=== PATIENT | male | born 1965 | race American Indian/Alaskan Native ===

== ENCOUNTER 2018-02-01 14:30 | Emergency (ER) | payer OTHER ==
[~2018-02-01] VITALS: Ht 182.9 cm; Wt 45.4 kg
[~2018-02-01 14:30] MED LIST: INSDET100 SC; INSU100I6; VICODIN ES 7.51 EACH PO
[2018-02-01] MEDS ORDERED: ONDA8 PO (15:03)
[2018-02-01 15:04] LABS: BASOPHILS ABSOLUTE AUTO 0.04 K/mm3 (0.00-0.23); BASOPHILS PERCENT AUTO 1 % (0-2); EOSINOPHILS PERCENT AUTO 2 % (0-6); Hematocrit 40.7 % (37.0-53.0); Hemoglobin 13.6 g/dL (13.5-17.5); IMMATURE GRAN ABSOLUTE AUTO 0.01 K/mm3 (0.00-0.10); IMMATURE GRAN PERCENT AUTO 0 % (0-1); LYMPHOCYTES PERCENT AUTO 23 % (21-46); MONOCYTES ABSOLUTE AUTO 0.65 K/mm3 (0.16-1.47); MONOCYTES PERCENT AUTO 12 % (4-13); Mean Corpuscular HGB 30.7 pg (26.0-34.0); Mean Corpuscular HGB Conc 33.4 g/dL (31.5-36.5); Mean Corpuscular Volume 92 fL (80-100); Mean Platelet Volume 9.5 fL (9.1-12.4); NEUTROPHILS PERCENT AUTO 62 % (41-73); Platelet Count 224 K/mm3 (150-400); RDW Coefficient Variation 13.3 % (11.7-14.2); RDW Standard Deviation 44.8 fL (35.1-46.3); Red Blood Cell Count 4.43 M/mm3 (4.30-5.90)
[2018-02-01] MEDS ORDERED: Cholestyrami239.4 GM PO (15:04)
[2018-02-01 15:14] LABS: Alanine Aminotransfer (ALT/SGP 19 U/L (12-78); Albumin/Globulin Ratio 0.8 (0.8-1.8); Alk Phos 55 U/L (50-136); Anion Gap 7 mmol/L (6-16); Aspartate Aminotrans (AST/SGOT 12 U/L (12-37); Bilirubin, Total 0.2 mg/dL (0.1-1.0); Blood Urea Nitrogen 11 mg/dL (8-24); Bun/Creatinine Ratio 16.8 (12.0-20.0); CO2, Blood 26 mmol/L (21-32); Calcium, Blood 8.3 mg/dL (8.5-10.1); Chloride, Blood 109 mmol/L (98-108); Creatinine, Blood 0.65 mg/dL (0.60-1.20); Globulin, Blood 3.7 g/dL (2.2-4.0); Glomerular Filtration Rate >60 (60-); Glucose, Blood 116 mg/dL (70-99); Sodium, Blood 142 mmol/L (136-145); Total Protein, Blood 6.7 g/dL (6.4-8.2)
[2018-02-01] MEDS ORDERED: KETO10 PO (16:30)
[2018-02-01] MEDS ORDERED: METO5A PO (16:30)
== END 2018-02-01 16:44 | disposition home or self-care (01) ==
LOC: ER 14:30
PROVIDERS: Internal Medicine
DX: E11.43 Type 2 diabetes mellitus with diabetic autonomic (poly)neuropathy (principal); K31.84 Gastroparesis; Z79.899 Other long term (current) drug therapy
CPT/HCPCS: 74176; 80053; 82272; 83690; 84484; 85025; 93005; 93010; 96374; 96375; 99284-25; J2405; J2765

== ENCOUNTER 2018-10-26 08:20 | Inpatient (IN) | payer OTHER ==
[~2018-10-26] VITALS: Ht 170.2 cm; Wt 72.6 kg
[~2018-10-26 08:20] MED LIST changes: +Cholestyrami239.4 GM PO; +KETO10 PO; +METO5A PO; +ONDA8 PO
[2018-10-26 08:47] LABS: BASOPHILS ABSOLUTE AUTO 0.05 K/mm3 (0.00-0.23); BASOPHILS PERCENT AUTO 0 % (0-2); EOSINOPHILS ABSOLUTE AUTO 0.02 K/mm3 (0.00-0.68); EOSINOPHILS PERCENT AUTO 0 % (0-6); Hematocrit 44.6 % (37.0-53.0); IMMATURE GRAN ABSOLUTE AUTO 0.03 K/mm3 (0.00-0.10); IMMATURE GRAN PERCENT AUTO 0 % (0-1); LYMPHOCYTES ABSOLUTE AUTO 0.81 K/mm3 (0.84-5.20); LYMPHOCYTES PERCENT AUTO 7 % (21-46); MONOCYTES ABSOLUTE AUTO 0.76 K/mm3 (0.16-1.47); MONOCYTES PERCENT AUTO 7 % (4-13); Mean Corpuscular HGB 31.7 pg (26.0-34.0); Mean Corpuscular HGB Conc 33.6 g/dL (31.5-36.5); Mean Corpuscular Volume 94 fL (80-100); Mean Platelet Volume 10.6 fL (9.1-12.4); NEUTROPHILS ABSOLUTE AUTO 9.83 K/mm3 (1.96-9.15); NEUTROPHILS PERCENT AUTO 86 % (41-73); Platelet Count 216 K/mm3 (150-400); RDW Coefficient Variation 13.4 % (11.7-14.2); RDW Standard Deviation 46.7 fL (35.1-46.3); Red Blood Cell Count 4.73 M/mm3 (4.30-5.90)
[2018-10-26 09:00] LABS: Albumin, Blood 4.1 g/dL (3.4-5.0); Albumin/Globulin Ratio 1.1 (0.8-1.8); Bilirubin, Total 0.5 mg/dL (0.1-1.0); Bun/Creatinine Ratio 11.2 (12.0-20.0); Calcium, Blood 9.7 mg/dL (8.5-10.1); Creatinine, Blood 1.43 mg/dL (0.60-1.20); Globulin, Blood 3.7 g/dL (2.2-4.0); Potassium, Blood 3.8 mmol/L (3.5-5.5); Total Protein, Blood 7.8 g/dL (6.4-8.2)
--- NOTE | 2018-10-26 14:45 | NUR ---
Telephone call with hospitalist: Asked for orders for straight cath with lidocaine per pt's baseline for the past six years. Also requested telemetry due to pt's heart rate increasing. Made provider aware that blood sugar has increased to 231. New orders: straight cath Q 6 hours with lidocaine.
--- NOTE | 2018-10-26 17:15 | NUR ---
Shift summary: Tato is complaining of severe abdominal pain, N/V and diarrhea. He states that he has had chronic diarrhea for the past 6 years which is the cause of his weight loss. His skin is intact. He states that he is not diabetic, that he thought he was but the lab results said otherwise. His chart states that he is a Type I diabetic. He also reports that he straight caths at home using a 12 Coude. Hospital supply has a 14 Coude. Orders obtained from Dr. Cam. Tato is very sensitive to noise, complaining that staff is "yelling" at him. He has a bed alarm on due to self-transferring. He is weak and states he is unable to stand up straight due to the abdominal pain. He wears Attends. He doesn't know why he straight caths. He states that he has a caregiver at home but doesn't know why. He has been tachycardic since admission with the highest BP 109 systolic. He states that the IV dilaudid is doing nothing for his pain. He has slept between doses. He is on continuous BiOx set up by RT.
--- NOTE | 2018-10-26 20:22 | NUR ---
SPOKE WITH DR. CORTES REGARDING ELEVATED HR IN 130'S. RECOMMENDED TELEMETRY. NO ORDER FOR TELEMETRY, HOWEVER NEW ORDER FOR A 500CC BOLUS OF NS. WILL BEGIN AND CTM.
--- NOTE | 2018-10-26 21:55 | NUR ---
PT NPO WITH D5/LR INFUSING. CBG'S ELEVATED >300. COVERED PER SS. HOSPITALIST NOTIFIED FOR RECOMMENDATION OF FLUID CHANGE. D5/LR DC. NEW ORDER FOR LR. HR 130'S AT REST. 150'S WITH MOVEMENT. NEW ORDER FOR EKG.
[2018-10-26 23:11] LABS: Adenovirus F 40/41 Not Detected (NOT DETECT); Astrovirus Not Detected (NOT DETECT); Campylobacter Sp Not Detected (NOT DETECT); Cryptosporidium Not Detected (NOT DETECT); Cyclospora Cayetanensis Not Detected (NOT DETECT); E. Coli O157 Not Detected (NOT DETECT); Entamoeba Histolytica Not Detected (NOT DETECT); Enteroaggregative E. coli-EAEC Not Detected (NOT DETECT); Enteropathogenic E. coli-EPEC Not Detected (NOT DETECT); Enterotoxigenic E. coli-ETEC Not Detected (NOT DETECT); Giardia Lamblia Not Detected (NOT DETECT); Norovirus GI/GII Not Detected (NOT DETECT); Plesiomonas Shigelloides Not Detected (NOT DETECT); Rotavirus A Not Detected (NOT DETECT); Salmonella Sp Not Detected (NOT DETECT); Sapovirus Not Detected (NOT DETECT); Shiga Toxin-prod E. coli-STEC Not Detected (NOT DETECT); Shigella/Enteroin E. coli-EIEC Not Detected (NOT DETECT); Vibrio Cholerae Not Detected (NOT DETECT); Vibrio Sp Not Detected (NOT DETECT); Yersinia Enterocolitica Not Detected (NOT DETECT)
[2018-10-26 23:14] LABS: Source, Urine Voided
[2018-10-26 23:19] LABS: Blood, Urine 5+ (Neg); Glucose Qualitative, Urine 1+ (Neg); Ketones, Urine 1+ (Neg); Leukocyte Esterase, Urine 3+ (Neg); Nitrite, Urine Neg (Neg); Protein, Urine 4+ (Neg); Specific Gravity, Urine 1.025 (1.003-1.022); Urobilinogen, Urine 1+ (Normal)
[2018-10-26 23:22] LABS: Bilirubin, Urine 1+ (Neg)
[2018-10-26 23:25] LABS: Appearance, Urine Cloudy (Clear); Bacteria Many /hpf; Color, Urine Amber (P-Yellow); Red Blood Cells, Urine 0-2 /hpf (0-2); Squamous Epithelial Cells Few /hpf (Few); White Blood Cells, Urine TNTC /hpf (0-5)
[2018-10-26 23:26] LABS: Calcium Oxalate Crystals Few /hpf
--- NOTE | 2018-10-27 05:07 | NUR ---
SHIFT SUMMARY: PT HAS BEEN COMPLAINING OF ABD PAIN AND NAUSEA THROUGHOUT SHIFT. APPEARS TO BE WEAK, FRAIL AND FATIGUED. HR ELEVATED THROUGHOUT SHIFT WITH A LOW BLOOD PRESSURE. 500CC BOLUS GIVEN. LR INFUSING AT 125/HR PER EMAR. GIVEN ZOFRAN AND 0.5MG DILAUDID. PT REQUESTING PAIN MEDICATION THIS MORNING, HOWEVER NOT GIVEN D/T BP LOW AT 90/61. PT CURRENTLY RESTING IN BED. PT ABLE TO STRAIGHT CATH HIMSELF. 75ML OF DARK URINE OUT. PT REPORTS STRAIGHT CATHING ONCE A DAY AT BASELINE. OOB TO BEDSIDE COMMODE INDEPENDENTLY. PT IS HAVING CLEAR-JELLY LIKE STOOLS. STOOL SAMPLE SENT TO LAB.
[2018-10-27 05:24] LABS: BASOPHILS ABSOLUTE AUTO 0.01 K/mm3 (0.00-0.23); BASOPHILS PERCENT AUTO 1 % (0-2); Hematocrit 43.2 % (37.0-53.0); Hemoglobin 14.4 g/dL (13.5-17.5); Mean Corpuscular HGB 31.5 pg (26.0-34.0); Mean Corpuscular HGB Conc 33.3 g/dL (31.5-36.5); Mean Corpuscular Volume 95 fL (80-100); Mean Platelet Volume 10.2 fL (9.1-12.4); Platelet Count 188 K/mm3 (150-400); RDW Coefficient Variation 13.5 % (11.7-14.2); RDW Standard Deviation 46.7 fL (35.1-46.3); Red Blood Cell Count 4.57 M/mm3 (4.30-5.90)
[2018-10-27 05:25] LABS: EOSINOPHILS PERCENT AUTO 0 % (0-6); IMMATURE GRAN ABSOLUTE AUTO 0.01 K/mm3 (0.00-0.10); IMMATURE GRAN PERCENT AUTO 1 % (0-1); LYMPHOCYTES ABSOLUTE AUTO 0.33 K/mm3 (0.84-5.20); LYMPHOCYTES PERCENT AUTO 17 % (21-46); MONOCYTES ABSOLUTE AUTO 0.26 K/mm3 (0.16-1.47); MONOCYTES PERCENT AUTO 13 % (4-13); NEUTROPHILS ABSOLUTE AUTO 1.39 K/mm3 (1.96-9.15); NEUTROPHILS PERCENT AUTO 70 % (41-73)
[2018-10-27 05:42] LABS: Bun/Creatinine Ratio 16.2 (12.0-20.0); Calcium, Blood 7.7 mg/dL (8.5-10.1); Creatinine, Blood 2.04 mg/dL (0.60-1.20); Potassium, Blood 2.8 mmol/L (3.5-5.5)
[2018-10-27 05:46] LABS: BAND PERCENT MAN 45 % (0-8); BASOPHILS PERCENT MAN 0 % (0-2); EOSINOPHILS ABSOLUTE MAN 0.02 K/mm3 (0.00-0.68); EOSINOPHILS PERCENT MAN 1 % (0-6); LYMPHOCYTES PERCENT MAN 20 % (21-46); METAMYELOCYTE ABSOLUTE MAN 0.08 K/mm3 (0.00-0.00); METAMYELOCYTE PERCENT MAN 4 % (0-0); MONOCYTES ABSOLUTE MAN 0.06 K/mm3 (0.16-1.47); MONOCYTES PERCENT MAN 3 % (4-13); NEUTROPHILS ABSOLUTE MAN 1.44 K/mm3 (1.96-9.15); SEG NEUTROPHILS PERCENT MAN 27 % (41-73); TOTAL CELLS COUNTED 100
--- NOTE | 2018-10-27 05:46 | NUR ---
ATTEMPTED TO CALL HOSPITALIST REGARDING LOW BP, TACHYCARDIA, URINE SAMPLE AND LABS WITH CONCERNS OF SEPSIS. NO ANSWER AT THIS TIME.
--- NOTE | 2018-10-27 06:45 | NUR ---
PT TO ICU 7 FROM SURGICAL FLOOR FROM RAPID RESPONSE. PT APPEARS PALE, IN THE POSITION AND IS MOANING IN PAIN. UPON TRANSFER TO ICU BED PT HAS JELLY LIKE BLOOD DISCHARGE FROM RECTUM. PER SURGICAL FLOOR NURSE, PT ATTEMPTED TO USE BEDSIDE COMMODE BECAME WEAK AND PALE AND HAD RECTAL BLEEDING. BLADDER SCAN ORDERED, 127 ML URINE NOTED. PER PT HE STRAIGHT CATHS SELF FOR UNKNOWN REASON. PT MEDICATED FOR PAIN. PT RECEIVING 500 ML NS BOLUS TO BE FOLLOWED BY 1.5L MAINTAINENCE NS FLUID @124 ML/HR. WILL REPORT TO DAYSHIFT NURSE.
--- NOTE | 2018-10-27 06:49 | NUR ---
WHILE GETTING OUT OF BED TO [facility], PT REPORTS "I DON'T FEEL WELL". PT BEGAN TO GET PALE AND BECAME UNRESPONSIVE. SANGUINOUS JELLY LIKE STOOL LEAKING PER RECTUM DURING THIS TIME. RAPID RESPONSE TEAM INITIATED AT APPROX 0550. BP 105/51 WITH HR OF 126. SALINE BOLUS STARTED. OXYGEN APPLIED. BLOOD SUGAR 135 AT 0603. NARCAN ADMINISTERED AT APPROX 0613 PER HOSPITALIST ORDERS. PT TRANSFERRED TO ICU. BP 67/43 WITH HR OF 57 PRIOR TO TRANSFERRING.
[2018-10-27 07:25] LABS: Hematocrit 41.8 % (37.0-53.0); Hemoglobin 13.8 g/dL (13.5-17.5)
--- NOTE | 2018-10-27 08:00 | NUR ---
ASSESSMENT- PT HYPOTENSIVE TO 40'S. MINIMALLY RESPONSIVE. CHECKED WITH MANUAL CUFF. BOLUS INFUSING, SINUS TACH. COLOR PALE, SKIN COOL, MOIST, PULSES PALPABLE. RESPIRATIONS UNLABORED, ON NRB MASK. NOTIFIED DR. GARCIA, LEVOPHED STARTED VIA RAC IV WITH IMPROVEMENT OF BP TO 80'S. PT AWAKE, ABLE TO ANSWER SOME QUESTIONS. STATES HAS HAD CHRONIC DIARRHEA FOR 6 YEARS, HAD SMALL AMOUNT BLOODY DRAINAGE FROM RECTUM-LINEN CHANGE. C/O INCREASING BACK PAIN-RESTLESS. ABDOMEN PAINFUL TO ANY TOUCH, BOWEL SOUNDS PRESENT, ABDOMEN FLAT, SOFT. CHANGED TO NC-SATURATIONS MAINTAINING. RESPIRATIONS INCREASED WITH PAIN. CONSULT CALLED TO DR. ADKINS BY ROBIN HERCULES
--- NOTE | 2018-10-27 08:14 | NUR ---
DR. GARCIA HERE-UPDATED. PT AWAKE, C/O BACK PAIN-CHRONIC AND ABDOMINAL PAIN. WAS MOANING AND RESTLESS IN BED, ASSISTED TO REPOSITION AND QUIET NOW. REMAINS ST 120'S, SBP IMPROVED WITH LEVOPHED AT 6 MCG/MIN TO 90'S. SKIN PALE. MOIST. AFEBRILE. PULSES PALPABLE. DENIES NEED TO VOID. IV INCREASED TO NS AT 150 CC/HR. ROCEPHIN STARTED, K REPLACEMENT INFUSING. PIV X 2 INTACT
--- NOTE | 2018-10-27 08:40 | NUR ---
DR. ADKINS HERE-ASSESSED PT. PLAN FOR CENTRAL LINE.
--- NOTE | 2018-10-27 09:13 | NUR ---
REMAINS SINUS TACH HIGH 120'S. DR. ADKINS AT BEDSIDE, NECK VEINS FLAT. TO RECEIVE 2 LITER NS BOLUS. INCREASED LEVOPHED FOR HYPOTENSION
--- NOTE | 2018-10-27 09:46 | NUR ---
CALL TO DR. LA TO UPDATE HIM ON PT CONDITION. STATES HE WILL SEE PT SHORTLY.
--- NOTE | 2018-10-27 10:46 | NUR ---
PT ALERT, ASKING QUESTIONS. NOT ORIENTED, EXPLAINED PLAN OF CARE, STATES UNDERSTANDING. C/O ABDOMINAL AND BACK PAIN-RESTLESS. REPOSITIONED, LINEN CHANGE FOR COMFORT. RX WITH PAIN MEDICATION. RECIEVING FLUID BOLUS. PLAN NOW FOR PICC LINE. LEVOPHED AT 8 MCG/MIN. VOIDED SMALL AMOUNT-SPILLED IN BED. DENIES NEED TO VOID NOW.
--- NOTE | 2018-10-27 10:48 | NUR ---
Upon receiving a referral requesting spiritual care, I visited patient. Patient is sitting up in bed and alert. I introduce myself and explain what department I am from. Patient quickly states that he is not interested in a visit. I will continue to remain available to patient and family.
--- NOTE | 2018-10-27 11:01 | NUR ---
DR. LA HERE, ASSESSED PT. PLANS FOR SURGERY. PT AGREEABLE.
[2018-10-27 11:44] LABS: Source, Urine Catheter
--- NOTE | 2018-10-27 11:57 | NUR ---
PICC LINE BEING PLACED BY SABINA HERCULES. PREPARING FOR SURGERY. LACTATE 3.3, K 2.8-NOTIFIED DR. LA-SEE ORDERS.
--- NOTE | 2018-10-27 12:08 | NUR ---
DR. LA HERE-PT CONSENTED FOR SURGERY. PICC LINE COMPLETED. LEVOPHED AND IVF TO LINE. DR. CHOWDHURY HERE-REPORT GIVEN. PT CONTINUES SINUS TACH, MAP > 60. READIED FOR SURGERY
[2018-10-27 12:16] LABS: Bilirubin, Urine Neg (Neg); Blood, Urine 5+ (Neg); Glucose Qualitative, Urine Neg (Neg); Ketones, Urine 1+ (Neg); Leukocyte Esterase, Urine 2+ (Neg); Nitrite, Urine Neg (Neg); Protein, Urine 2+ (Neg); Urobilinogen, Urine NORM (Normal)
[2018-10-27 12:30] LABS: Hemoglobin 12.9 g/dL (13.5-17.5)
[2018-10-27 12:41] LABS: Appearance, Urine Hazy (Clear); Bacteria Mod /hpf; Color, Urine Yellow (P-Yellow); Mucus Light (0-Heavy); Squamous Epithelial Cells Not Seen /hpf (Few)
[2018-10-27 12:42] LABS: Amorphous Mod (0-Heavy)
--- NOTE | 2018-10-27 12:49 | NUR ---
10/27/18 [id number] Genia Quiroz PT ENTERED OR WITH GARCIA CATHETER AND IS ON SCHEDULED ANTIBIOTICS
--- NOTE | 2018-10-27 14:50 | NUR ---
CLARIFICATION- POTASSIUM SUPPLEMENT TO BE [address] ADKINS.
--- NOTE | 2018-10-27 16:25 | NUR ---
RETURN FROM O.R. PT TO ICU FROM O.R. IN BED. AWAKE, ALERT, ABLE TO ANSWER QUESTIONS. C/O ABDOMINAL TENDERNESS AND PAIN FROM NGT. EXPLAINED PLAN OF CARE. ABLE TO REST WHEN UNDISTURBED. CALLED UNIT-UPDATED AND SPOKE WITH PT. SINUS TACH, SBP 70'80'S-LEVOPHED INCREASED FROM 8 TO 10 MCG/MIN, VASOPRESSIN GTT STARTED. LR AT 150 CC/HR, POTASSIUM REPLACEMENT STARTED. LEFT PICC INTACT, 2 PIV INTACT. ABDOMEN SOFT WITH ML DRSG WITH VACUUM INTACT, NO DRAINAGE. NGT TO LIS, VERIFED WITH AIR BOLUS, NO DRAINAGE. UO VIA GARCIA. ASSISTED TO REPOSITION FOR COMFORT. SCDS ON.
[2018-10-27 17:11] LABS: Bun/Creatinine Ratio 19.4 (12.0-20.0); Calcium, Blood 6.6 mg/dL (8.5-10.1); Creatinine, Blood 1.44 mg/dL (0.60-1.20); Potassium, Blood 2.9 mmol/L (3.5-5.5)
--- NOTE | 2018-10-27 18:36 | NUR ---
BLOOD PRESSURE LOW-LEVOPHED INCREASED TO 12 MCG/MIN. UPDATE TO DR. ADKINS-WILL HAVE CORTISOL LEVEL. SBP NOW 100/74. VASOPRESSIN CONTINUES, LR AT 150 CC/HR AND POTASSIUM REPLACEMENT. PT AWAKE, STATES ANXIOUS, REQUESTING MEDICATIONS, EXPLAINED PLAN OF CARE, COOPERATIVE. C/O SWALLOWING PROBLEMS WITH NGT AND ABDOMINAL TENDERNESS. RX WITH FENTANYL, ORAL CARE DONE. REMAINS ST.
[2018-10-27 18:57] LABS: Hematocrit 39.5 % (37.0-53.0); Hemoglobin 13.4 g/dL (13.5-17.5)
--- NOTE | 2018-10-27 20:00 | NUR ---
ASSUMED CARE OF PT AT 1915. REPORT RECEIVED AT BEDSIDE. PT PRESENTS IN BED. SLEEPING. DOES AWAKEN TO TACTILE STIMULI. STATES THAT HE FEELS "TENDER ALL OVER". LEVOPHED DRIP @ 12 MCG/MIN AND VASOPRESSIN AT 0.04 UNITS PER MIN. THIS KEEPS MAP > 60. WOUND VAC OVER MIDLINE DRESSINGS. DOES HAVE COMPLAINT OF SORE THROAT SECONDARY TO NGT. WILL REVIEW CHART AND PLAN OF CARE FOR THIS PT.
--- NOTE | 2018-10-27 20:57 | NUR ---
CALL MADE TO DR ADKINS WITH CORTISOL LEVEL. ALSO CONCERNING BLOOD GLUCOSE LEVEL BEING LOW. ORDERS RECEIVED. PT UPDATED ON NEW ORDERS. NGT TO LIWS. NO OUTPUT NOTED. CONTINUES ON POTASSIUM REPLACEMENT. WILL CHECK POTASSIUM LEVEL AFTER THIS HAS COMPLETED. WILL CONTINUE TO MONITOR PT.
--- NOTE | 2018-10-27 22:14 | NUR ---
PT MEDICATED WITH FENTANYL 25 MCG'S FOR A PAIN VERBALIZED 09/16. PT DID NOT WANT TO BE TURNED AND CLEANED OF LIQUID AND DRY STOOL. AFTER FENTANYL, AND ALLOWING PT TO DO MOST OF HIS TURN HE RELUCTANTLY ALLOWED HIMSELF TO BE CLEANED AND REPOSITIONED. FULL BED LINEN CHANGE DONE. NGT TO LIWS WAS NOT DRAINING AT ALL AT BEGINNING OF SHIFT. WITH TURN, PT HAS 200 ML LIQUID BROWNISH COLORED OUTPUT FROM NGT. TEACHING DONE WITH PT ON NGT SUCTIONING, AND PURPOSE. PT HAS BEEN VERY IRRITABLE, AND HAS THREATENED THIS RN AT ONE TIME. PT CALMER NOW. WILL CONTINUE TO MONITOR PT. POTASSIUM INFUSION JUST COMPLETED. WILL WAIT FOR AT LEAST 30 MINUTES AND DO RECHECK OF POTASSIUM LEVEL PER ORDERS. LEVOPHED AND VASOPRESSIN CONTINUE AT PREVIOUS RATES.
--- NOTE | 2018-10-28 01:00 | NUR ---
PT STATES THAT HE DOES NOT WANT TO BE REPOSITIONED IN BED. IS ABLE TO MOVE HIMSELF ABOUT ON HIS OWN. HAS BEEN MEDICATED AGAIN WITH 25 MCG FENTANYL FOR PAIN. PT FALLS ASLEEP AFTER BEING MEDICATED. HAS CONTINUED WITH LOW GRADE FEVER PER GARCIA TEMP PROBE. HAVE LOWERED ROOM TEMP. HAVE PROVIDED PT WITH OCCASSIONAL ICE CHIP TO MOISTEN MOUTH. WILL CONTINUE TO MONITOR PT.
--- NOTE | 2018-10-28 03:54 | NUR ---
PT CURRENTLY RESTING IN BED. HAVE NOT BEEN ABLE TO DECREASE LEVOPHED THIS NIGHT. PT MAINTAINS WITH MAP >60. SBP MAINTAIN MOSTLY IN 90'S. HEART RATE REMAINS SINUS TACHY. WILL CONTINUE TO MONITOR PT.
[2018-10-28 04:28] LABS: BASOPHILS ABSOLUTE AUTO 0.04 K/mm3 (0.00-0.23); BASOPHILS PERCENT AUTO 1 % (0-2); Hematocrit 38.1 % (37.0-53.0); Hemoglobin 13.1 g/dL (13.5-17.5); LYMPHOCYTES PERCENT AUTO 3 % (21-46); MONOCYTES PERCENT AUTO 4 % (4-13); Mean Corpuscular HGB Conc 34.4 g/dL (31.5-36.5); Mean Corpuscular Volume 93 fL (80-100); Mean Platelet Volume 10.8 fL (9.1-12.4); Platelet Count 155 K/mm3 (150-400); RDW Coefficient Variation 13.7 % (11.7-14.2); RDW Standard Deviation 47.2 fL (35.1-46.3); Red Blood Cell Count 4.09 M/mm3 (4.30-5.90)
[2018-10-28 04:33] LABS: EOSINOPHILS PERCENT AUTO 0 % (0-6); IMMATURE GRAN ABSOLUTE AUTO 0.13 K/mm3 (0.00-0.10); IMMATURE GRAN PERCENT AUTO 2 % (0-1); NEUTROPHILS ABSOLUTE AUTO 7.23 K/mm3 (1.96-9.15); NEUTROPHILS PERCENT AUTO 92 % (41-73)
[2018-10-28 04:50] LABS: Anion Gap 11 mmol/L (6-16); BAND PERCENT MAN 37 % (0-8); BASOPHILS PERCENT MAN 0 % (0-2); Blood Urea Nitrogen 27 mg/dL (8-24); Bun/Creatinine Ratio 22.9 (12.0-20.0); CO2, Blood 17 mmol/L (21-32); Calcium, Blood 6.5 mg/dL (8.5-10.1); Chloride, Blood 111 mmol/L (98-108); Creatinine, Blood 1.18 mg/dL (0.60-1.20); EOSINOPHILS PERCENT MAN 0 % (0-6); Glomerular Filtration Rate >60 (60-); Glucose, Blood 196 mg/dL (70-99); LYMPHOCYTES ABSOLUTE MAN 0.07 K/mm3 (0.84-5.20); LYMPHOCYTES PERCENT MAN 1 % (21-46); METAMYELOCYTE ABSOLUTE MAN 0.55 K/mm3 (0.00-0.00); METAMYELOCYTE PERCENT MAN 7 % (0-0); MONOCYTES ABSOLUTE MAN 0.07 K/mm3 (0.16-1.47); MONOCYTES PERCENT MAN 1 % (4-13); NEUTROPHILS ABSOLUTE MAN 7.18 K/mm3 (1.96-9.15); Potassium, Blood 3.7 mmol/L (3.5-5.5); SEG NEUTROPHILS PERCENT MAN 54 % (41-73); Sodium, Blood 139 mmol/L (136-145); TOTAL CELLS COUNTED 100
--- NOTE | 2018-10-28 06:34 | NUR ---
CALL MADE TO DR ADKINS SEVERAL TIMES THIS AM. ORDERS HAVE BEEN RECEIVED FOR BOLUS OF LR SECONDARY TO LACTIC ACID INCREASING FROM 2.5 TO 3.0. IONIZED CALCIUM LEVEL OF .94 DISCUSSED. ORDER FOR CALCIUM GLUCONATE RECEIVED. PT CURRENTLY RESTING IN BED. WILL CONTINUE TO MONITOR PT, AND WILL REPORT OFF TO ONCOMING RN.
--- NOTE | 2018-10-28 07:56 | NUR ---
Recieved report from Bob HERCULES. Patient was resting when entering room but shortly awakened to be placed on bedpan. He had small amount of clear mucus mixed with dark red blood. I medicated with Fentanyl as per MAR for 10/10 Back/hip/throat pain. His voice is soft and hoarse and removed 1L o2 via NC to RA for sats 97%. He is able to communicate his needs. He has 16Fr Temp torres reading 99.5. He has NG in place with brown/green dark bile, several hundred ml's.He has PICC line BEVERLY dressing intact and site WNL's and is infusing Levophed at 12 mcg/min and Vaso pressin 0.04 unit/min for BP 108/86, and D5 LR [id number]. He also has 18ga IV RAC and LFA both dressings intact and sites WNL's and are flushed and SL'd. HR 120's. midline dressing C/D/I and small wound vac attached.
--- NOTE | 2018-10-28 09:51 | NUR ---
Patient awakens easily for care and is cooperative. Dr Martinez was in room to assess and no new current orders. Reduced Levophed to 10mcg/min and systolics 90's with MAPS > 70's. He still communicates with soft hoarse voice. medicated earlier and he states feels better and can rest a little bit. HR 110's andsats mid 905's on RA.
--- NOTE | 2018-10-28 11:09 | NUR ---
Dr Sears by and gave permission for patient to have NG out and start ice chips. Patient called with assist. Levophed rteduced to 8mcg/min and systolic 90-199 and MAP >65. No other significant changes.
--- NOTE | 2018-10-28 11:11 | NUR ---
echocardiogram complete
--- NOTE | 2018-10-28 13:30 | NUR ---
reduced again the Levophed gtt to 6mcg/min, systolics remains in the 90's with MAP >65. Patient continues to rest with intermitent repositioning. HR remains 110's and 97% sats on RA.
--- NOTE | 2018-10-28 15:49 | NUR ---
Medicated patient with 50mcg of Fentanyl prior to bed bath. He was able to hold conversation throughout whole time. He remains having systolic in the 90's with MAP > 65, HR 114 sats on RA 97%. Linen changed and full bath given.
--- NOTE | 2018-10-28 17:17 | NUR ---
Patient has been resting since bath. Have Levophed down to 4mcg/kg and systolics 80-90's, no other changes with other gtt's. he had out 1000ml of tea colored urine. His temp is down to 98.8 from 99.5.
--- NOTE | 2018-10-28 20:00 | NUR ---
ASSUMED CARE OF PT AT 1915. REPORT RECEIVED AT BEDSIDE. PT PRESENTS IN BED. ALERT AND ORIENTED. SOMEWHAT SOMNULENT. PT HAS NOT COMPLAINTS AT THIS TIME. CONTINUES ON LEVOPHED DRIP AT 5 MCG/MIN AND VASOPRESSING AT STANDARD RATE OF 0.04 UNITS/MIN. PT'S MAP MAINTAINING > 60. WILL EVALUATE FOR ABILITY TO TITRATE LOWER. PT DENIES CHEST PAIN OR PRESSURE. MIDLINE DRESSING INTACT WITH WOUND VAC. MOVES HIMSELF ABOUT IN BED. WILL REVIEW CHART AND PLAN OF CARE FOR THIS PT.
--- NOTE | 2018-10-28 22:08 | NUR ---
PT INCONTINENT TO LOOSE DARK AND BLOOD TINGED STOOL. PT STATES THAT AT BASELINE HE WEARS ATTENDS SECONDARY TO INCONTINENCE OF LOOSE STOOL. HAS BEEN MUCH MORE PLEASANT THIS EVENING, AND IS ENGAGING IN CONVERSTATION. HAVE MEDICATED PT WITH FENTANYL FOR COMPLAINTS OF 8/10 PAIN. HE DENIES POST OP PAIN. STATES BACK AND HIP PAIN. PT STATES THAT HE HAS HAD BONE GRAFT REMOVED FROM HIPS SECONDARY TO PREVIOUS FOOT SURGERIES. WILL CONTINUE TO MONITOR PT.
--- NOTE | 2018-10-29 01:58 | NUR ---
HAVE TITRATED LEVOPHED TO 3 MCG/MIN AND PLACED VASOPRESSIN ON STANDBY. WILL CLOSELY MONITOR BLOOD PRESSURES. PT HAS BEEN MEDICATED WITH ANOTHER 25 MCG'S FENTANYL FOR BACK AND HIP PAIN WHICH HE RATES 6/10. PT STATES THAT HE IS FEELING SOMEWHAT BETTER THIS NIGHT. HAS BEEN ABLE TO EXPECTORATE VERY THICK KEE COLORED SPUTUM WHICH HE CLAIMS MAKES HIM FEEL IF HE CAN BREATHE BETTER. WILL CONTINUE TO MONITOR PT.
[2018-10-29 04:48] LABS: BASOPHILS ABSOLUTE AUTO 0.04 K/mm3 (0.00-0.23); BASOPHILS PERCENT AUTO 1 % (0-2); Hematocrit 31.9 % (37.0-53.0); Hemoglobin 11.1 g/dL (13.5-17.5); LYMPHOCYTES ABSOLUTE AUTO 0.21 K/mm3 (0.84-5.20); LYMPHOCYTES PERCENT AUTO 3 % (21-46); MONOCYTES ABSOLUTE AUTO 0.41 K/mm3 (0.16-1.47); MONOCYTES PERCENT AUTO 5 % (4-13); Mean Corpuscular HGB 32.2 pg (26.0-34.0); Mean Corpuscular HGB Conc 34.8 g/dL (31.5-36.5); Mean Corpuscular Volume 93 fL (80-100); Mean Platelet Volume 10.6 fL (9.1-12.4); Platelet Count 98 K/mm3 (150-400); RDW Coefficient Variation 13.8 % (11.7-14.2); Red Blood Cell Count 3.45 M/mm3 (4.30-5.90); White Blood Cell Count 8.18 K/mm3 (4.00-11.30)
[2018-10-29 04:49] LABS: EOSINOPHILS PERCENT AUTO 0 % (0-6); IMMATURE GRAN ABSOLUTE AUTO 0.13 K/mm3 (0.00-0.10); IMMATURE GRAN PERCENT AUTO 2 % (0-1); NEUTROPHILS ABSOLUTE AUTO 7.39 K/mm3 (1.96-9.15); NEUTROPHILS PERCENT AUTO 90 % (41-73)
[2018-10-29 05:07] LABS: Anion Gap 8 mmol/L (6-16); Blood Urea Nitrogen 23 mg/dL (8-24); Bun/Creatinine Ratio 25.6 (12.0-20.0); CO2, Blood 22 mmol/L (21-32); Calcium, Blood 7.3 mg/dL (8.5-10.1); Chloride, Blood 111 mmol/L (98-108); Glomerular Filtration Rate >60 (60-); Glucose, Blood 125 mg/dL (70-99); Magnesium, Blood 1.6 mg/dL (1.6-2.4); Phosphorus, Blood 1.3 mg/dL (2.5-4.9); Potassium, Blood 2.8 mmol/L (3.5-5.5); Sodium, Blood 141 mmol/L (136-145)
--- NOTE | 2018-10-29 06:24 | NUR ---
CALL MADE TO DR ADKINS CONCERNING AM LABS. ORDERS RECEIVED FOR ELECTROLYTE REPLACEMENT. PT HAS BEEN MEDICATED SEVERAL TIMES THIS NIGHT WITH FENTANYL WITH GOOD RESULTS. ONCE WITH ZOFRAN FOR COMPLAINT OF NAUSEA. NO FURTHER COMPLAINTS AFTER ZOFRAN. PT PROVIDED WITH YAUNKEUR FOR SELF SUCTIONING OF SPUTUM AND SECRETIONS THAT HE IS ABLE TO EXPECTORATE. PT STATES THAT THIS IS VERY HELPFUL FOR HIM. HAVE TITRATED OFF THE PRESSORS AT THIS TIME. WILL CONTINUE TO MONITOR FOR MAP REMAINING > 65. WILL MONITOR PT, AND WILL REPORT OFF TO ONCOMING RN.
--- NOTE | 2018-10-29 07:22 | NUR ---
Recieved report from Juan M HERCULES. Patient on bedpan without success. He is alert and oriented and is able to communicate his needs. We talked ablot getting up out of bed today. he turned himself in bed and is using foot booard to push himself up in bed. He is on RA and sats upper 90%'s. Started K Phos, K, Mag as per APR. He has PICC line in BEVERLY and dressing intact and site WNL's and infusing, He also has 18ga IV in LFA and RAC and dressings intact and sites WNL's and are flushed and SL'd. He has 16Fr Temp torres in place draining to gravity. SCD's in place. Pressors remain off and systolics 80-90'sand MAP's >65.
--- NOTE | 2018-10-29 09:30 | NUR ---
Patient continues to rest and awakens eaily for care and is cooperative. Systolic 80-90 and MAP > 65. He remains on RA. He denies any amairani for pain intervention and other needs.
--- NOTE | 2018-10-29 11:44 | NUR ---
Patient continues getting IV potassium and will do lab after all 80 meq are in . Systolic 80-90 with MAP > 65. Patient states very tired. he has has several phone call and seem to cheer him up a little, still flat affect. He has good urine ouyputwith clear yellow urine. He is afebrile at 98.3.. He states just want to rest alittle longer before getting up.
--- NOTE | 2018-10-29 14:08 | NUR ---
Patient tolerated po pill with sip of water without any nausea. Dr Martinez started on Moidodrine. Patient 80's systolic with MAP >65. He remains on RA and sats upper 90%'s. He is currently sleeping.
--- NOTE | 2018-10-29 16:56 | NUR ---
Potassium done and stat K drawn. His mother called and put him good spirits. Systolic 80-90's and HR 111. He remains on RA and resting. No other significant changes.
--- NOTE | 2018-10-29 18:18 | NUR ---
Dr Martinez notified of K and decreaseing glucose and added 4o meq potassium and changed fluids to D5 LR at 75 ml/hr and D5 at 75ml/hr. Systolic with Midodrine maintains mid to upper 90's. He is doing well on RA and sats upper 90's and has been afebrile all day.
--- NOTE | 2018-10-29 19:40 | NUR ---
ASSUME CARE: REPORT RECIEVED FROM MARII HERCULES. MONITOR INTACT SHOWING SINUS TACH HEART [id number]. LUNG SOUNDS CLEAR UPPER LOBES DECREASED SOUNDS IN THE BASES. MIDLINE INCISION DRY WOUND VAC INTACT HYPO BOWEL SOUNDS REQUEST PRN PAIN MED BEFORE REPOSITIONING PRINGLE SOILED WITH DRY BROWN STOOL. PARTIAL BATH AND COMPLETE LINEN CHANGE AFTER PAIN MED ANDBEING PLACED ON THE BEDPAN. REPOSITIONED TO RIGHT SIDE.TEMP PROBE GARCIA PATENT DRAINING DAVID URINE. ASSISTS WITH REPOSITIONING WARM BLANKET REQUESTED AND OBTAINED. CONTINUE TO MONITOR AND REPORT CHANGE IN PATIENT CONDITION.
--- NOTE | 2018-10-30 00:28 | NUR ---
PLACED 02 AT 2L/MIN PER NC SECONDARY TO SPO2 88%
[2018-10-30 05:38] LABS: Hematocrit 30.1 % (37.0-53.0); Hemoglobin 10.4 g/dL (13.5-17.5); Mean Corpuscular HGB 31.8 pg (26.0-34.0); Mean Corpuscular HGB Conc 34.6 g/dL (31.5-36.5); Mean Corpuscular Volume 92 fL (80-100); Mean Platelet Volume 10.7 fL (9.1-12.4); NRBC ABSOLUTE 0.02 K/mm3 (0.00-0.02); NRBC Auto 0.2 /100 WBC (0.0-0.2); Platelet Count 76 K/mm3 (150-400); RDW Coefficient Variation 13.9 % (11.7-14.2); RDW Standard Deviation 47.5 fL (35.1-46.3); Red Blood Cell Count 3.27 M/mm3 (4.30-5.90); White Blood Cell Count 11.69 K/mm3 (4.00-11.30)
[2018-10-30 05:54] LABS: Magnesium, Blood 1.9 mg/dL (1.6-2.4); Phosphorus, Blood 1.1 mg/dL (2.5-4.9)
[2018-10-30 06:01] LABS: BAND PERCENT MAN 11 % (0-8); BASOPHILS PERCENT MAN 0 % (0-2); EOSINOPHILS PERCENT MAN 0 % (0-6); LYMPHOCYTES ABSOLUTE MAN 0.46 K/mm3 (0.84-5.20); LYMPHOCYTES PERCENT MAN 4 % (21-46); MONOCYTES PERCENT MAN 6 % (4-13); NEUTROPHILS ABSOLUTE MAN 10.52 K/mm3 (1.96-9.15); SEG NEUTROPHILS PERCENT MAN 79 % (41-73); TOTAL CELLS COUNTED 100
--- NOTE | 2018-10-30 06:12 | NUR ---
SHIFT SUMMARY MONITOR INTACT SHOWING SINUS TACH HEART RATE 100'S-110'S. CO HEADACHE MEDICATED WITH FENTANYL 50MCG FOUR TIMES THIS SHIFT. LUNG SOUNDS CLEAR UPPER LOBES WITH DECREASED SOUNDS IN THE BASES. O2 AT 4L/MIN PER NASAL CANNULA NEEDS REMINDED/ENCOURAGED TO KEEP PRONGS IN NARES. ABDOMEN SOFT TENDER WITH HYPO ACTIVE BOWEL SOUNDS. RCCTAL TUBLE PLACED WITH IMMEDIATE LIQUID BROWN RETURN. ASSISTS WITH REPOSITIONING. REFUSES REPOSITIONING AT TIMES AT LEAST TWICE THIS SHIFT.STATES "I CAN MOVE MYSELF" WOUND VAC INTACT TO MIDLINE INCISION. SITE CLEAN DRY INTACT. GARCIA PATENT DRAIINING DAVID URINE. CONTINUE TO MONITOR AND REPORT CHANGE IN PATIENT CONDITION
[2018-10-30 08:35] LABS: Anion Gap 6 mmol/L (6-16); Blood Urea Nitrogen 14 mg/dL (8-24); Bun/Creatinine Ratio 18.6 (12.0-20.0); CO2, Blood 22 mmol/L (21-32); Calcium, Blood 7.4 mg/dL (8.5-10.1); Chloride, Blood 114 mmol/L (98-108); Creatinine, Blood 0.75 mg/dL (0.60-1.20); Glomerular Filtration Rate >60 (60-); Glucose, Blood 105 mg/dL (70-99); Potassium, Blood 3.2 mmol/L (3.5-5.5); Sodium, Blood 142 mmol/L (136-145)
--- NOTE | 2018-10-30 10:06 | NUR ---
MORNING ASSESSMENT: PT AWAKE AND FREQUENTLY SUCTIONING MOUTH. C/O NOT BEING ABLE TO BREATH WELL. NC IS OFF WHILE PT SUCTIONS AND O2 SAT DROPS TO 87% PT REPOSITIONED TO [place], NC PUT BACK ON AND O2 SAT ELEVATED TO 94%. SBP 100S. SINUS TACH. LUNG SOUNDS CLEAR, DIMINISHED. ENVIRONMENTAL HEALTH TECHNOLOGIST STRENGTH EQUAL BILAT. ABD NOT DISTENDED, TENDER, BOWEL TONES HYPERACTIVE. PER RECTAL TUBE PT IS HAVING WATERY DIARRHEA. POST-SURG MIDLINE ABD DRESSING CLEAN, DRY, INTACT. C/O PAINFUL HEADACHE, FENTANYL GIVEN FOR PAIN SCALE 8/10. ON REASSESSMENT PT WAS RESTING. PT IS CALM, PLEASANT AND COOPERATIVE.
--- NOTE | 2018-10-30 13:15 | NUR ---
Clinical Visit: Pt alert, oriented. He is suffering from a severe headache at the time of visit. Discussed cardiac care. He does not want to come to cardiac rehab; this was discussed in hospitalist meeting. Pt has 20% EF and would also be appropriate for hospice care. He is not interested in any service at this time and commented that "nobody told me that my heart was bad." Pt would like to have his headache treated. He states, "nothing has helped and I have had this headache for 6 hours." Updated nurse on conversation. Pt requesting medication for headache. No other concerns from nursing at this time. Will remain available.
--- NOTE | 2018-10-30 14:37 | NUR ---
SPOKE WITH PT RE VISIT FROM HOSPICE/PALLIATIVE CARE RN. PT EXPRESSED CONCERN THAT HE "DIDN'T HAVE MUCH TIME" AND THAT HE WAS DYING. EXPLAINED THAT HOSPICE/PALLIATIVE CARE IS NOT INDICATIVE OF ACTIVE AND DYING. PALLIATIVE CARE HELPS PEOPLE MANAGE CHRONIC HEALTH ISSUES WELL PROVIDING COMFORT MEASURES. WITH PTS PERMISSION, I SPOKE WITH PT'S STAFF CLIMATE SCIENTIST FROM THE [facility]. THEY CALLED ASKING IF THIS WAS A DIRE SITUATION. SPOKE WITH THEM REITERATING WHAT I EXPLAINED TO PT. THEY EXPRESSED UNDERSTANDING OF THE SITUATION AND THAT THERE MAY HAVE BEEN SOME MISCOMMUNICATION. PT ALSO EXPRESSED UNDERSTANDING.
--- NOTE | 2018-10-30 16:32 | NUR ---
PT FAMILY AT BEDSIDE. MAIN COMPLAINTS TODAY HAVE BEEN PAIN RELATED TO A HEADACHE. SWITCHED TO PO PAIN MEDS. PT STATED THEY DID NOT HELP, HOWEVER HE STATED THEY MADE HIM DROWSY ENOUGH TO REST. PT REQUIRED LESS SUCTIONING THROUHGOUT DAY AND O2 SAT REMAINED ABOVE 90% ON 1L NC. GARCIA AND RECTAL TUBE DRAINING. DISCUSSED WITH PT REMOVING GARCIA, PT STATED HE WASNT READY FOR THE GARCIA TO BE REMOVED. ABD DRESSING CLEAN, DRY, INTACT. PT DOES NOT COMPLAIN OF ABD PAIN EXCEPT WHEN COUGHING AND REPOSITIONING. HEART SOUNDS DISTANT AND PT REMAINS IN SINUS TACH. LUNG SOUNDS CLEAR BUT DIMINISHED.
--- NOTE | 2018-10-30 19:15 | NUR ---
ASSUME CARE: REPORT RECIEVED FROM OFF GOING RN DIONISIO. MONITOR INTACT SHOWING SINUS RHYTHM-SINUS TACH. HEART RATE 90'S-110'S. FINISHING UP DINNER TRAY. LUNG SOUNDS CLEAR UPPER LOBES WITH DECREASED SOUNDS IN THE BASES. O2 IN PLACE INCREASED TO 4L/MIN SPO2 92-95 DESATES TO 88 AT TIMES. ABDOMEN SOFT WITH WOUND VAC INTACT CLEAR DRY.TO MIDLINE INCISION. GARCIA PATENT DRAINING DAVID URINE RECTAL TUBE INTACT/PATENT WITH BROWN LIQUID RETURN. REPOSITIONS SELF IN BED CONTINUE TO MONITOR AND REPORT CHANGE IN PATIENT CONDITION.
[2018-10-30 19:36] LABS: Anion Gap 4 mmol/L (6-16); Blood Urea Nitrogen 11 mg/dL (8-24); Bun/Creatinine Ratio 14.5 (12.0-20.0); CO2, Blood 24 mmol/L (21-32); Calcium, Blood 7.2 mg/dL (8.5-10.1); Chloride, Blood 113 mmol/L (98-108); Creatinine, Blood 0.76 mg/dL (0.60-1.20); Glomerular Filtration Rate >60 (60-); Glucose, Blood 124 mg/dL (70-99); Potassium, Blood 3.4 mmol/L (3.5-5.5); Sodium, Blood 141 mmol/L (136-145)
--- NOTE | 2018-10-30 21:00 | NUR ---
DR COE NOTIFIED ORDERS NOTED. STATUS CHANGE TO PCU CONTINUE TO MONITOR AND REPORT CHANGE IN PATIENT CONDITION
[2018-10-31 03:38] LABS: Anion Gap 6 mmol/L (6-16); Blood Urea Nitrogen 11 mg/dL (8-24); Bun/Creatinine Ratio 14.7 (12.0-20.0); CO2, Blood 25 mmol/L (21-32); Chloride, Blood 113 mmol/L (98-108); Creatinine, Blood 0.75 mg/dL (0.60-1.20); Glomerular Filtration Rate >60 (60-); Glucose, Blood 106 mg/dL (70-99); Magnesium, Blood 1.9 mg/dL (1.6-2.4); Phosphorus, Blood 2.4 mg/dL (2.5-4.9); Potassium, Blood 3.6 mmol/L (3.5-5.5); Sodium, Blood 144 mmol/L (136-145)
--- NOTE | 2018-10-31 06:49 | NUR ---
SHIFT SUMMARY RESTS QUIETLY WHEN UNDISTURBED. MONITOR INTACT SHOWING SINUS RHYTHM/SINUS TACH. HEART RATE 90'S-100'S. LUNG SOUNDS CLEAR UPPER LOBES WITH DECREASED SOUNDS IN THE BASES. RESPIRATIONS REGULAR AND EASY WITH O2 IN PLACE AT 4L/MIN/ SPO2 92-96% ABDOMEN SOFT WITH BOWEL SOUNDS FOUR QUADS. GARCIA PATENT DRAINING DAVID URINE. RECTAL TUBE INTACT WITH BROW LIQUID RETURN REPOSITIONS SELF IN BED WITH ENCOURAGEMENT. TOLERATING DIET WELL. CONTINUE TO MONITOR AND REPORT CHANGE IN PATIENT CONDITIONL
--- NOTE | 2018-10-31 12:40 | NUR ---
0800: CARE ASSUMED, ASSESSMENT COMPLETED. PT AWAKE, ORIENTED X4, APPROPRIATE AND COOPERATIVE. ALL VSS, HR SINUS, PT DENIES CHEST PAIN/SOB. O2 AT 4L/NC, SPO2 >90%. ABD TENDER TO PALPATION, SOFT, BT HYPERACTIVE, RECTAL TUBE WITH SMALL AMOUNT OF BROWN LIQ STOOL IN TUBING. MIDLINE ABD INCISION WITH WOUND VAC, DRSG CDI, NO S/SX INFECTION NOTED AT ABDOMINAL INCISION AREA. GARCIA PATENT AND DRAINING WITH CLEAR YELLOW OUTPUT. DR. FIGUEREDO IN TO SEE PT. PT'S APPETITE IS POOR. 1010: PT SURGICAL STATUS, TELE DC'D PER ORDERS. GARCIA AND RECTAL TUBES DC'D, BEDBATH GIVEN, ATTENDS PLACED. DR. RODRIGUEZ IN TO ASSESS, NO NEW ORDERS. 1230: PT WAS UP TO CHAIR FOR ABOUT 1 HOUR, MEDICATED FOR NAUSEA WHILE UP, THEN BACK TO BED FOR LUNCH, TRANSFERRED WELL WITH 2 PERSON ASSIST AND WALKER, GAIT WEAK BUT STEADY. PT MEDICATED FOR ABD PAIN, VOIDED 50ML URINE AT THIS TIME, DENIES OTHER NEEDS.
--- NOTE | 2018-10-31 14:38 | NUR ---
PT REPORTS BLADDER FEELS FULL AND THAT HE IS UNABLE TO VOID, SELF CATHS AT HOME. BLADDER SCAN SHOWS 714ML IN BLADDER, DR. FIGUEREDO NOTIFIED, NEW ORDERS. PT GIVEN UROJET AND CATH FOR SELF STRAIGHT CATH.
--- NOTE | 2018-10-31 19:36 | NUR ---
1630: PT RESTING IN BED, VSS, DENIES NEEDS OR C/O AT THIS TIME. HAS BEEN ABLE TO VOID SMALL AMOUNTS WITHOUT CATH. MIDLINE ABD DRESSING REMAINS CDI WITH WOUND VAC IN PLACE. PT DENIES NAUSEA. 1830: PT WATCHING TV, DENIES NEEDS OR C/O AT THIS TIME. NO CHANGES NOTED TO STATUS, PT REMAINS PLEASANT AND COOPERATIVE. 1845: REPORT TO LORENZO, SURGICAL FLOOR RN. WILL TRANSFER PATIENT AFTER SHIFT CHANGE.
--- NOTE | 2018-10-31 19:41 | NUR ---
PT TRANSFERRED TO ROOM 227 ON SURGICAL FLOOR. PT ACCEPTING OF TRANSFER, AND IS ALLOWED TIME FOR QUESTIONS. PT ARRIVES TO ROOM WHERE HIS RN AWAITED.
--- NOTE | 2018-11-01 07:50 | NUR ---
PT STATED ABD PAIN IS NOT BAD BUT HAS H/A ALSO REQ SMALLER IRISH GARCIA 12 IRISH GIVEN FOR IN/OUT CATH PT STATED PASSING GAS AND HAVING LIQUID STOOL ALSO OCC OFF AND ON NAUSEA
--- NOTE | 2018-11-01 12:45 | NUR ---
pt oob to [facility] to have bm
[2018-11-01 16:06] LABS: FINAL INTERPRETATION Negative (.); HIV 1 AB Negative (Negative); HIV 2 AB Negative (Negative)
--- NOTE | 2018-11-01 18:04 | NUR ---
pt had a bm
--- NOTE | 2018-11-01 18:12 | NUR ---
dr diggs by to see pt diet adv earlier by dr melendez
--- NOTE | 2018-11-02 04:47 | NUR ---
GARCIA CATH D/C AT THIS TIME.
--- NOTE | 2018-11-02 05:14 | NUR ---
POD 6 S/P RESECTION. PT VSS T/O NIGHT. DRESSING CDI. PT MED FOR PAIN X1 W/REP RELIEF. PT HAD NO C/O N/V, CONT TO HAVE LOOSE STOOL. GARCIA PLACED TO PLUG D.C THIS AM, AWAITING VOID. PT UP OOB W/SBA, SAUMYA WELL. PT USING CALL LIGHT FOR ASSISTANCE, WILL CONT TO MONITOR UNTIL REP GIVEN TO ONCOMING RN.
[2018-11-02] MEDS ORDERED: Percocet 7.5-31 EACH PO (10:39)
[2018-11-02] MEDS ORDERED: Florastor250 MG PO (10:40)
[2018-11-02] MEDS ORDERED: POLY500 PO (10:40)
[2018-11-02] MEDS ORDERED: AMOCLA875 PO (10:42)
--- NOTE | 2018-11-02 13:43 | NUR ---
PT HAS DISCHARGE ORDERS, ATTEMPTING TO ARRANGE TRANSPORT HOME WITH / STATISTICAL TECHNICIAN. AWAITING CALL FROM STATISTICAL TECHNICIAN AT THIS TIME.
--- NOTE | 2018-11-02 15:06 | NUR ---
DISCHARGE: PACKET PRINTED AND DISCHARGE INSTUCTIONS GIVEN, PT VERBALIZED UNDERSTANDING. [facility] CALLED TO FILL MEDS AND PT SENT WITH SCRIPT FOR PERCOCET. PICC LINE DC'D BY PCU MECHANICAL TECHNICIAN. ELENA, PT'S PSYCHOLOGIST MILITARY PERSONNEL TO TRANSPORT PT HOME. PT LEFT UNIT AT 1435 VIA WHEELCHAIR WITH BLAIR QUINTEROS.
== END 2018-11-02 14:35 | disposition home or self-care (01) | DRG 853 ==
LOC: ER 08:20 → SURS 08:21 → ICUE 10-27 06:09 → SURS 10-31 19:35
PROVIDERS: Emergency Medicine; Hospitalist; Internal Medicine; Internal Medicine Critical Care Medicine; Surgery; ADMIT Internal Medicine
PROC: 3E033XZ Introduction of Vasopressor into Peripheral Vein, Percutaneous Approach (ICD-10-PCS; 2018-10-27)
PROC: 0DTB0ZZ Resection of Ileum, Open Approach (ICD-10-PCS; principal; 2018-10-27 12:00)
PROC: 0DTK0ZZ Resection of Ascending Colon, Open Approach (ICD-10-PCS; 2018-10-27 12:00)
DX: A41.9 Sepsis, unspecified organism (principal); R65.21 Severe sepsis with septic shock; N17.0 Acute kidney failure with tubular necrosis; K56.50 Intestinal adhesions [bands], unspecified as to partial versus complete obstruction; K55.9 Vascular disorder of intestine, unspecified; N39.0 Urinary tract infection, site not specified; E44.1 Mild protein-calorie malnutrition; Z68.1 Body mass index [BMI] 19.9 or less, adult; R18.8 Other ascites; I42.0 Dilated cardiomyopathy; F17.210 Nicotine dependence, cigarettes, uncomplicated; Z79.4 Long term (current) use of insulin; E11.649 Type 2 diabetes mellitus with hypoglycemia without coma; E87.6 Hypokalemia; E83.39 Other disorders of phosphorus metabolism; T40.601A Poisoning by unspecified narcotics, accidental (unintentional), initial encounter; R41.89 Other symptoms and signs involving cognitive functions and awareness
CPT/HCPCS: 0097U; 36415; 36569; 51702; 74018; 74176; 80048; 80053; 81001; 82330; 82533; 82947; 83605; 83690; 83735; 83880; 84100; 84132; 84484; 85014; 85018; 85025; 86701; 86702; 87040; 87086; 88307; 93005; 93010; 93306; 94762; 96361; 96365; 96366; 96367; 96368; 96374; 96375; 96376; 99285-25; A9270-GY; C1751; C9113; G0378; J0610; J0696; J1170; J1200; J1650; J2250; J2310; J2405; J2543; J2704; J2710; J2765; J3010; J3475; J3480; J7030; J7040; J7050; J7060; J7070; J7120

== ENCOUNTER 2018-11-10 04:43 | Inpatient (IN) | payer OTHER ==
[~2018-11-10] VITALS: Ht 182.9 cm; Wt 59.0 kg
[~2018-11-10 04:43] MED LIST changes: +AMOCLA875 PO; +Florastor250 MG PO; +POLY500 PO; +Percocet 7.5-31 EACH PO
[2018-11-10 05:45] LABS: Alanine Aminotransfer (ALT/SGP 28 U/L (12-78); Albumin/Globulin Ratio 0.5 (0.8-1.8); Alk Phos 266 U/L (50-136); Anion Gap 8 mmol/L (6-16); Aspartate Aminotrans (AST/SGOT 18 U/L (12-37); Bilirubin, Total 0.5 mg/dL (0.1-1.0); Blood Urea Nitrogen 15 mg/dL (8-24); Bun/Creatinine Ratio 13.3 (12.0-20.0); CO2, Blood 21 mmol/L (21-32); Calcium, Blood 7.8 mg/dL (8.5-10.1); Chloride, Blood 111 mmol/L (98-108); Creatinine, Blood 1.13 mg/dL (0.60-1.20); Glomerular Filtration Rate >60 (60-); Glucose, Blood 170 mg/dL (70-99); Sodium, Blood 140 mmol/L (136-145)
[2018-11-10 05:46] LABS: Troponin I 0.019 ng/mL (0.000-0.040)
[2018-11-10 06:25] LABS: BASOPHILS ABSOLUTE AUTO 0.07 K/mm3 (0.00-0.23); BASOPHILS PERCENT AUTO 0 % (0-2); EOSINOPHILS ABSOLUTE AUTO 0.01 K/mm3 (0.00-0.68); EOSINOPHILS PERCENT AUTO 0 % (0-6); Hemoglobin 12.3 g/dL (13.5-17.5); IMMATURE GRAN ABSOLUTE AUTO 0.13 K/mm3 (0.00-0.10); IMMATURE GRAN PERCENT AUTO 1 % (0-1); LYMPHOCYTES ABSOLUTE AUTO 0.45 K/mm3 (0.84-5.20); LYMPHOCYTES PERCENT AUTO 2 % (21-46); MONOCYTES ABSOLUTE AUTO 0.93 K/mm3 (0.16-1.47); MONOCYTES PERCENT AUTO 5 % (4-13); Mean Corpuscular HGB 30.8 pg (26.0-34.0); Mean Corpuscular HGB Conc 31.5 g/dL (31.5-36.5); Mean Platelet Volume 9.5 fL (9.1-12.4); NEUTROPHILS ABSOLUTE AUTO 17.94 K/mm3 (1.96-9.15); NEUTROPHILS PERCENT AUTO 92 % (41-73); Platelet Count 710 K/mm3 (150-400); RDW Coefficient Variation 14.1 % (11.7-14.2); RDW Standard Deviation 50.3 fL (35.1-46.3); White Blood Cell Count 19.53 K/mm3 (4.00-11.30)
[2018-11-10 06:25] LABS: Calcium, Ionized (POC) 1.05 mmol/L (1.10-1.46); Chloride (POC) 109 mmol/L (98-108); Creatinine (POC) 1.2 mg/dL (0.8-1.3); Glucose (ISTAT POC) 177 mg/dL (70-99); Hemoglobin (POC) 12.9 g/dL (13.5-17.5); Sodium (POC) 139 mmol/L (135-148); Total CO2 (POC) 20 mmol/L (21-32)
[2018-11-10 06:27] LABS: Mean Corpuscular Volume 98 fL (80-100)
[2018-11-10 08:44] LABS: Hemoglobin 12.4 g/dL (13.5-17.5)
--- NOTE | 2018-11-10 10:51 | NUR ---
PT TO ICU 14 AT 0810, ALERT AND ORIENTED X4, IRRITABLE BUT COOPERATIVE. SBP 80'S-90'S, MAP >60, PT DENIES DIZZINESS WHILE LYING IN BED. HR 110'S SINUS, OTHER VSS. INCISION TO MIDLINE ABD HEALING WELL, EDGES APPROXIMATED, STERISTRIPS CDI, PT REPORTS LENORA WERE REMOVED YESTERDAY. ABD SOFT, FLAT, TENDER TO PALPATION IN LUQ. PT ALSO REPORTS CHRONIC NECK PAIN AND GENERALIZED TENDERNESS. ATTENDS IN PLACE, DRY. 'S FELICIANO AND ALEXUS IN TO ASSESS PT, NS AND PROTONIX INFUSING PER ORDERS. ECHO ATTEMPTED, PT UNCOOPERATIVE D/T PAIN. MEDICATED WITH FENTANYL, ECHO TO BE ATTEMPTED LATER TODAY. BP REMAINS HYPOTENSIVE, ORDERS TO MAINTAIN MAP >[address] WIGGINS. PT RESTING IN BED WITH EYES CLOSED, ROUSES EASILY TO VOICE.
[2018-11-10 13:32] LABS: Source, Urine Catheter
[2018-11-10 13:51] LABS: Hematocrit 37.8 % (37.0-53.0)
[2018-11-10 13:52] LABS: Bilirubin, Urine Neg (Neg); Blood, Urine 3+ (Neg); Glucose Qualitative, Urine Neg (Neg); Ketones, Urine 1+ (Neg); Leukocyte Esterase, Urine 1+ (Neg); Nitrite, Urine Neg (Neg); Protein, Urine 2+ (Neg); Urobilinogen, Urine NORM (Normal)
[2018-11-10 14:02] LABS: Appearance, Urine Clear (Clear); Color, Urine Yellow (P-Yellow)
[2018-11-10 14:04] LABS: Bacteria Few /hpf; Squamous Epithelial Cells Few /hpf (Few)
--- NOTE | 2018-11-10 14:07 | NUR ---
DR. ADKINS IN TO ASSESS PT, PICC LINE INSERTED BY DELISA MARTIN PER ORDERS. BP REMAINS HYPOTENSIVE, MAP REMAINS >60. GARCIA CATHETER INSERTED, SPECIMEN SENT TO LAB. LABS DRAWN FROM PICC LINE, LINES FLUSH AND DRAW WITHOUT DIFFICULTY. PT REMAINS IRRITABLE, REPOSITIONING SELF, WARM COMPRESS APPLIED TO BACK OF NECK FOR NECK PAIN. PT DENIES OTHER NEEDS.
[2018-11-10 14:16] LABS: Troponin I 0.025 ng/mL (0.000-0.040)
[2018-11-10 14:17] LABS: Creatine Kinase MB Index 4.8 (0.0-4.0)
[2018-11-10 14:24] LABS: U Amphetamine Screen Not Detected; U Barbituate Screen Not Detected; U Benzodiazapine Screen Not Detected; U Buprenorphine Screen Not Detected; U Cannabinoids Screen DETECTED; U Cocaine Screen Not Detected; U Methadone Screen Not Detected; U Methamphetamine Screen Not Detected; U Opiates Screen Not Detected; U Oxycodone Screen DETECTED; U Phencyclidine Screen Not Detected; U Propoxyphene Screen Not Detected
--- NOTE | 2018-11-10 14:58 | NUR ---
AWARE OF PRELIMINARY ECHO RESULTS, AWAITING NEW ORDERS. PT RESTING WITH EYES CLOSED, HR 100-110, BP 95/67, MAP 75.
--- NOTE | 2018-11-10 15:03 | NUR ---
DR. MIRAMONTES AT BEDSIDE TO ASSESS. PT REPORTS ABD PAIN ONLY UPON PALPATION AT THIS TIME, REPORTS NECK IS HIS MAIN SOURCE OF PAIN. PT REPORTS NECK PAIN IS ACUTE, BEGAN LAST NIGHT AFTER HIS FALL AT HOME.
--- NOTE | 2018-11-10 15:33 | NUR ---
Limited echo performed due to poor windows and recent exam.
--- NOTE | 2018-11-10 17:05 | NUR ---
PT INCONTINENT OF LARGE LIQUID STOOL, SPECIMEN SENT TO LAB. ATTENDS, SHEETS, AND GOWN CHANGED, PARTIAL BEDBATH GIVEN, ORAL CARE COMPLETED. PT MEDICATED FOR PAIN PER ORDERS. BP REMAINS HYPOTENSIVE, MAP MAINTAINING >60. NS BOLUS INFUSING PER ORDERS, DOOR CLOSED PER PT REQUEST, PT IN BED WITH EYES CLOSED.
[2018-11-10 18:18] LABS: Adenovirus F 40/41 Not Detected (NOT DETECT); Astrovirus Not Detected (NOT DETECT); Campylobacter Sp Not Detected (NOT DETECT); Cryptosporidium Not Detected (NOT DETECT); Cyclospora Cayetanensis Not Detected (NOT DETECT); E. Coli O157 Not Detected (NOT DETECT); Entamoeba Histolytica Not Detected (NOT DETECT); Enteroaggregative E. coli-EAEC Not Detected (NOT DETECT); Enteropathogenic E. coli-EPEC Not Detected (NOT DETECT); Enterotoxigenic E. coli-ETEC Not Detected (NOT DETECT); Giardia Lamblia Not Detected (NOT DETECT); Norovirus GI/GII Not Detected (NOT DETECT); Plesiomonas Shigelloides Not Detected (NOT DETECT); Rotavirus A Not Detected (NOT DETECT); Salmonella Sp Not Detected (NOT DETECT); Sapovirus Not Detected (NOT DETECT); Shiga Toxin-prod E. coli-STEC Not Detected (NOT DETECT); Shigella/Enteroin E. coli-EIEC Not Detected (NOT DETECT); Vibrio Cholerae Not Detected (NOT DETECT); Vibrio Sp Not Detected (NOT DETECT); Yersinia Enterocolitica Not Detected (NOT DETECT)
--- NOTE | 2018-11-10 19:29 | NUR ---
1900: PT RESTING IN BED, SBP'S 80'S-90'S, MAPS MAINTAINING >60, HR 100-110 SINUS. PT DENIES ABD PAIN/NAUSEA AT THIS TIME, NO EMESIS SINCE ARRIVAL TO UNIT. URINE OUTPUT LOW, NS INFUSING PER ORDERS. PT REMAINS ALERT AND ORIENTED X4, IS RESTING IN BED AT THIS TIME, ATTENDS CLEAN. ABX INFUSING PER ORDERS, REPORT TO ONCOMING SHIFT.
--- NOTE | 2018-11-10 19:52 | NUR ---
ASSUMED CARE PT IS LYING IN BED, ALERT AND ORIENTED X 4. COMPLAINING OF 8/10 PAIN IN HIS NECK. PT IS NOT HAPPY WITH HEALTH CARE SYSTEM, ESPECIALLY WITH [facility]. NS INS INFUSING AT 100ML/HR, PROTONIX AT 10ML/HR VIA PICC IN JANETTE, SITE IS WNL. IV IN LEFT AC IS SALINE LOCKED. PT DENIES SOB, AND ABDOMINAL PAIN. GARCIA IS PATENT AND HANGING TO GRAVITY. BED IS LOW AND LOCKED, CALL LIGHT WITHIN REACH.
[2018-11-10 21:18] LABS: Hematocrit 32.3 % (37.0-53.0); Hemoglobin 10.6 g/dL (13.5-17.5)
[2018-11-10 21:38] LABS: Creatine Kinase MB Index 5.2 (0.0-4.0); Troponin I 0.021 ng/mL (0.000-0.040)
--- NOTE | 2018-11-11 02:44 | NUR ---
ASSUMED CARE/PT ARRIVES TO ICU VIA STRETCHER AT 2323. PT IS ORIENTED TO HIMSELF, THE LOCATION, AND HIS FAMILY. HOWEVER, REQUIRES FREQUENT REDIRECTION. PT IS IN AND OUT OF SLEEP, AND HAS MOMENTS OF APNEA, AND IS 'BELLY BREATHING'. HE HAS NO GARCIA CATHETER, BUT HAS TWO PATENT IV'S THAT ARE SALINE LOCKED. AND DAUGHTER WERE IN WAITING ROOM, ANSWERED QUESTIONS, AND THEN WENT HOME, DAUGHTER IS STAYING OVERNIGHT. BED IS LOW AND LOCKED. CALL LIGHT WITHIN REACH PT REFUSED CPAP, BUT IS ON 2L NC. SAT'ING MID 90'S.
[2018-11-11 04:40] LABS: BASOPHILS ABSOLUTE AUTO 0.06 K/mm3 (0.00-0.23); BASOPHILS PERCENT AUTO 0 % (0-2); EOSINOPHILS ABSOLUTE AUTO 0.02 K/mm3 (0.00-0.68); EOSINOPHILS PERCENT AUTO 0 % (0-6); Hematocrit 31.7 % (37.0-53.0); Hemoglobin 10.3 g/dL (13.5-17.5); IMMATURE GRAN ABSOLUTE AUTO 0.24 K/mm3 (0.00-0.10); IMMATURE GRAN PERCENT AUTO 1 % (0-1); LYMPHOCYTES ABSOLUTE AUTO 0.92 K/mm3 (0.84-5.20); LYMPHOCYTES PERCENT AUTO 5 % (21-46); MONOCYTES PERCENT AUTO 7 % (4-13); Mean Corpuscular HGB 31.7 pg (26.0-34.0); Mean Corpuscular HGB Conc 32.5 g/dL (31.5-36.5); Mean Corpuscular Volume 98 fL (80-100); Mean Platelet Volume 9.7 fL (9.1-12.4); NEUTROPHILS ABSOLUTE AUTO 16.07 K/mm3 (1.96-9.15); NEUTROPHILS PERCENT AUTO 87 % (41-73); Platelet Count 579 K/mm3 (150-400); RDW Coefficient Variation 14.1 % (11.7-14.2); RDW Standard Deviation 50.6 fL (35.1-46.3); Red Blood Cell Count 3.25 M/mm3 (4.30-5.90); White Blood Cell Count 18.51 K/mm3 (4.00-11.30)
[2018-11-11 05:01] LABS: Alanine Aminotransfer (ALT/SGP 20 U/L (12-78); Albumin, Blood 1.5 g/dL (3.4-5.0); Albumin/Globulin Ratio 0.4 (0.8-1.8); Alk Phos 164 U/L (50-136); Anion Gap 8 mmol/L (6-16); Aspartate Aminotrans (AST/SGOT 14 U/L (12-37); Bilirubin, Total 0.3 mg/dL (0.1-1.0); Blood Urea Nitrogen 18 mg/dL (8-24); Bun/Creatinine Ratio 20.7 (12.0-20.0); CO2, Blood 19 mmol/L (21-32); Calcium, Blood 7.4 mg/dL (8.5-10.1); Chloride, Blood 114 mmol/L (98-108); Creatinine, Blood 0.87 mg/dL (0.60-1.20); Globulin, Blood 3.8 g/dL (2.2-4.0); Glomerular Filtration Rate >60 (60-); Glucose, Blood 110 mg/dL (70-99); Magnesium, Blood 1.7 mg/dL (1.6-2.4); Phosphorus, Blood 2.8 mg/dL (2.5-4.9); Potassium, Blood 3.5 mmol/L (3.5-5.5); Sodium, Blood 141 mmol/L (136-145); Total Protein, Blood 5.3 g/dL (6.4-8.2)
--- NOTE | 2018-11-11 06:21 | NUR ---
SHIFT SUMMARY PT HAS SLEPT INTERMITTENTLY THROUGHOUT NIGHT. HE IS ALERT AND ORIENTED X 4; EXPERIENCING GREAT PAIN IN HIS NECK, AND ABDOMEN (UPON PALPATION). FENTANYL HAS BEEN GIVING A FEW TIMES OVERNIGHT, WHICH SEEMED TO HELP SLIGHTLY. HE IS IRRITABLE, ESPECIALLY WITH HEALTHCARE SYSTEM AND STAFF. PT IS INCONTINENT, ABLE TO LET YOU KNOW WHEN HE HAS GONE TO THE BATHROOM AFTER THE FACT. HE HAS A GARCIA CATHETER THAT IS PATENT AND FLOWING TO GRAVITY. HE HAS A PICC LINE THAT IS WNL, NS IS GOING AT 100ML/HR AND PROTONIX AT 10ML/HR. HIS LEFT AC IV IS SALINE LOCKED. PT HAS MAINTAINED A MAP < 60 FOR MAJORITY OF NIGHT, A FEW LOW MAP'S IN HIGH 50'S BUT IS R/T TO HAVING HIS ARM (WITH THE BP CUFF) UP IN THE AIR. BED IS LOW AND LOCKED. CALL LIGHT WITHIN REACH.
--- NOTE | 2018-11-11 09:13 | NUR ---
CARE ASSUMED, ASSESSMENT COMPLETED. PT REPORTS 08/16 NECK AND ABD PAIN AND NAUSEA, MEDICATED PER MAR. PT ALERT, ORIENTED X4, VERBALLY ABRASIVE TO STAFF. HR 90'S SINUS, PT DENIES CP/PRESSURE. BP HYPOTENSIVE WITH MAPS MAINTAINING >60. MIDLINE INCISION HEALING WELL, STERI STRIPS INTACT, NO S/SX INFECTION NOTED. BT HYPERACTIVE, ATTENDS ON FOR CHRONIC INCONTINENCE, GARCIA PATENT AND DRAINING DAVID URINE, OUTPUT SMALL AT THIS TIME, WILL CONTINUE TO MONITOR. PICC TO RUE WNL, FLUSHES/INFUSES WELL. NS, ZOSYN, AND PROTONIX INFUSING PER ORDERS.
[2018-11-11 13:55] LABS: C-REACTIVE PROTEIN, EXT RANGE >19.000 mg/dL (0.000-0.300)
--- NOTE | 2018-11-11 13:59 | NUR ---
1130: PT HAD A LARGE LIQUID STOOL, ATTENDS CHANGED, BEDBATH AND LINEN CHANGE COMPLETED. PT MORE PLEASANT AT THIS TIME, COOPERATIVE WITH CARE. BP'S IMPROVING SLIGHTLY, MAPS STABLE. PT REPORTS ABD REMAINS VERY TENDER, MOSTLY IN LUQ BUT DIFFUSE PAIN PRESENT. NO EMESIS THIS SHIFT, NO OBVIOUS SOURCE OF BLEEDING NOTED, STOOL DOES NOT APPEAR BLOODY. 1330: 'Suzy WIGGINS, FE AND ALEXUS IN TO SEE PT, UPDATED ON STATUS. LABS DRAWN FROM PICC WITHOUT DIFFICULTY. I.S. TEACHING GIVEN, PT USING, INSPIRATIONS WEAK. PT INSTRUCTED TO USE Q30 MIN WHILE AWAKE, VERBALIZES UNDERSTANDING. REPOSITIONING SELF IN BED, DENIES NEEDS AT THIS TIME, STATES HE IS TIRED, LIGHTS OFF, DOOR CLOSED. VS UNCHANGED. PROTONIX AND IVF DC'D PER ORDERS.
--- NOTE | 2018-11-11 16:38 | NUR ---
PT REPORTS NECK PAIN, DENIES ABDOMINAL PAIN AND NAUSEA, MEDICATED PER ORDERS. VSS, PT AWAKE AND ALERT, PLEASANT THIS EVENING, COOPERATIVE WITH CARE, TOLERATING CLEAR LIQUIDS WITHOUT DIFFICULTY, NO N/V. BP WNL, NO PALLOR NOTED, PT DENIES DIZZINESS, CP/PRESSURE, AND SOB. PT'S CAREGIVER IN TO VISIT, PT NOW RESTING IN BED, STATES HE IS COMFORTABLE, DENIES NEEDS.
--- NOTE | 2018-11-11 18:59 | NUR ---
PT INCONTINENT OF LARGE LIQUID BM X2, ATTENDS, LINENS, AND GOWN CHANGED, PT PLEASANT AND COOPERATIVE WITH CARE. CALMOSEPTINE APPLIED TO PERIAREA. PT HAD 450ML URINE OUT THIS SHIFT, BEGAN EATING CLEAR LIQUIDS AND TOLERATED WELL, DENIES NAUSEA/ABD PAIN AFTER EATING. STERI STRIPS TO MIDLINE ABD REMOVED D/T BEING SOILED WITH STOOL. INCISION CLEANED WITH SOAP AND WATER, STERI STRIPS RE-APPLIED, ABX OINTMENT THEN APPLIED. INCISION WELL APPROXIMATED IN ALL AREAS EXCEPT FOR 0.25CM AREA AT PROXIMAL END, SMALL AMOUNT OF PUS PRESENT BEFORE CLEANSING. ATTENDS ON, NOT FASTENED TO KEEP INCISION CLEAN AND DRY. BP STABLE AT THIS TIME, HR SINUS 103, PT DENIES CHEST PAIN. REPORT TO ONCOMING SHIFT.
--- NOTE | 2018-11-11 19:34 | NUR ---
ASSUMED CARE RECIEVED REPORT FROM DELISA GIFFORD. PT IS LYING IN BED ALERT AND ORIENTED X 4. HE IS RECEIVING NS TKO, AND ZOSYN. CALL LIGHT IS WITHIN REACH. COMPLAINS OF A HEADACHE. BED IS LOW AND LOCKED.
[2018-11-12 05:15] LABS: BASOPHILS ABSOLUTE AUTO 0.03 K/mm3 (0.00-0.23); BASOPHILS PERCENT AUTO 0 % (0-2); EOSINOPHILS ABSOLUTE AUTO 0.13 K/mm3 (0.00-0.68); EOSINOPHILS PERCENT AUTO 1 % (0-6); Hematocrit 26.4 % (37.0-53.0); Hemoglobin 8.5 g/dL (13.5-17.5); IMMATURE GRAN ABSOLUTE AUTO 0.13 K/mm3 (0.00-0.10); IMMATURE GRAN PERCENT AUTO 1 % (0-1); LYMPHOCYTES ABSOLUTE AUTO 0.78 K/mm3 (0.84-5.20); LYMPHOCYTES PERCENT AUTO 5 % (21-46); MONOCYTES PERCENT AUTO 8 % (4-13); Mean Corpuscular HGB 31.3 pg (26.0-34.0); Mean Corpuscular HGB Conc 32.2 g/dL (31.5-36.5); Mean Corpuscular Volume 97 fL (80-100); Mean Platelet Volume 9.7 fL (9.1-12.4); NEUTROPHILS ABSOLUTE AUTO 12.17 K/mm3 (1.96-9.15); NEUTROPHILS PERCENT AUTO 85 % (41-73); Platelet Count 570 K/mm3 (150-400); RDW Coefficient Variation 14.2 % (11.7-14.2); Red Blood Cell Count 2.72 M/mm3 (4.30-5.90); White Blood Cell Count 14.34 K/mm3 (4.00-11.30)
[2018-11-12 05:33] LABS: Albumin, Blood 1.5 g/dL (3.4-5.0); Anion Gap 7 mmol/L (6-16); Blood Urea Nitrogen 12 mg/dL (8-24); Bun/Creatinine Ratio 18.8 (12.0-20.0); CO2, Blood 21 mmol/L (21-32); Calcium, Blood 7.6 mg/dL (8.5-10.1); Chloride, Blood 112 mmol/L (98-108); Creatinine, Blood 0.64 mg/dL (0.60-1.20); Glomerular Filtration Rate >60 (60-); Glucose, Blood 132 mg/dL (70-99); Phosphorus, Blood 1.6 mg/dL (2.5-4.9); Potassium, Blood 3.4 mmol/L (3.5-5.5); Sodium, Blood 140 mmol/L (136-145)
--- NOTE | 2018-11-12 07:42 | NUR ---
SHIFT SUMMARY PT ALERT AND ORIENTED X 4, SLEPT INTERMITTANTLY THROUGHOUT NIGHT. PT STILL COMPLAINS OF 8-10/10 PAIN IN HIS NECK. DENIES ABDOMINAL PAIN. HE IS VERY TENDER IN HIS SCROTUM, AND IT IS RED AND EXCORIATED. HE IS INCONTINENT AND HAS DIARRHEAL STOOL, REQUIRES FREQUENT CHANGES. HE HAS A PICC, WITH NS TKO, ZOSYN, AND KPHOS GOING. PT IS VERY EMOTIONAL, AND DEPRESSED. HE IS MORE TRUSTING OF HEALTH CARE STAFF, BUT IS STILL PRETTY ANGRY WITH HEALTH CARE SYSTEM. HE CAN REPOSITION HIMSELF IN BED. HE CAN MOVE ALL EXTREMEIES FAIRLY WELL, BUT IS WEAK AND DECONDITIONED. VITALS ARE STABLE ALL NIGHT, HR IS IMPROVING NOW IN THE 80'S. BED IS LOW AND LOCKED. CALL LIGHT WITHIN REACH.
--- NOTE | 2018-11-12 12:37 | NUR ---
0800: CARE ASSUMED, ASSESSMENT COMPLETED. PT RESTING IN BED, VSS, HR 80'S SINUS. PT DENIES ABD PAIN/NAUSEA AT THIS TIME, ABD REMAINS TENDER TO PALPATION. BT+, NO DISTENSION NOTED. MOODS ARE LABILE, PT ANGRY AND VERBALLY AGRESSIVE AT TIMES, PLEASANT AT TIMES, CRIES AT TIMES. PT CURRENTLY CALM AND COOPERATIVE WITH CARE, DENIES NEEDS. 1000: PT MEDICATED FOR NAUSEA, HEADACHE AND NECK PAIN, REPOSITIONING SELF IN BED, DENIES OTHER NEEDS. VS REMAIN STABLE, STERI STRIPS TO MIDLINE ABD INCISION CDI. DR. WIGGINS IN TO SEE PT. 1200: PT SAT UP IN BED FOR LUNCH, IS IRRITABLE AT THIS TIME. VSS, PT DENIES NAUSEA. DR. MIRAMONTES SAW PT THIS AM.
--- NOTE | 2018-11-12 14:14 | NUR ---
PT RESTING IN BED AT THIS TIME, DENIES C/O OR NEEDS. VSS, NO CHANGES NOTED. STATUS NOW MED WITH TELE.
--- NOTE | 2018-11-12 17:32 | NUR ---
1600: REPORT GIVEN TO DELISA LORENZ. PT INCONTINENT OF LARGE AMOUNT OF BROWN WATERY STOOL, THEN AGAIN DURING ATTENDS CHANGE. PT CLEANED UP, BEDBATH COMPLETED, CALMOSEPTINE APPLIED TO SCROTUM AND ROB AREA FOR EXCORIATION/SORENESS. RECTAL TUBE INSERTED AT THIS TIME TO PROTECT SKIN FROM FURTHER BREAKDOWN. VSS, MAP 70'S, HR 80'S SINUS, PT DENIES CHEST PAIN, DIZZINESS, SOB, ABD PAIN OR NAUSEA AT THIS TIME. PT TO ROOM 302 AT 1710 WITH BELONGINGS AND MEDICATIONS, ZOSYN INFUSING PER ORDERS.
--- NOTE | 2018-11-12 17:42 | NUR ---
1710 RECEIVED PT TO RM 302 FROM ICU 14. SLIDE TX TO BED. RECEIVED REPORT FROM [facility]ES. PT ADMITTED FOR GIB, ABD ABSCESS, AND SYNCOPE. RECENT ADMIT FOR BOWEL RESECTION, BECOMING SEPTIC WITH SEPSIS RESOLVING. PT HAVING MULTIPLE FALLS AT HOME, COMING TO ER AFTER LATEST FALL WITH C/O NECK AND ABD PAIN. PT WITH CHRONIC DIARRHEA X6 YEARS, PER REPORT; RECTAL TUBE PLACED IN ICU PRIOR TO TX TO 302. PER REPORT, PT'S BUTTOCKS AND ROB AREA VERY EXCORIATED. PT IS THIN AND FRAIL. APPEARS WEAK AND DECONDITIONED. ABLE TO TURN HIMSELF IN BED. DIET WAS CL AND TOLERATING, BUT ADVANCING TO [place] TONIGHT AND THEN REG FOR BREAKFAST. PT WITH GARCIA CATH, PATENT AND DRAINING CL URINE. PER REPORT, PT SELF CATHS AT HOME FOR URINE RETENTSION. A&O, ABLE TO MAKE NEEDS KNOWN. RESTING QUIETLY WAITING FOR DINNER TRAY. NO FURTHER NEEDS AT THIS TIME. CALL LT IN REACH.
[2018-11-13 04:57] LABS: BASOPHILS ABSOLUTE AUTO 0.05 K/mm3 (0.00-0.23); BASOPHILS PERCENT AUTO 1 % (0-2); EOSINOPHILS PERCENT AUTO 2 % (0-6); Hematocrit 29.6 % (37.0-53.0); Hemoglobin 9.7 g/dL (13.5-17.5); IMMATURE GRAN PERCENT AUTO 1 % (0-1); LYMPHOCYTES ABSOLUTE AUTO 0.89 K/mm3 (0.84-5.20); LYMPHOCYTES PERCENT AUTO 9 % (21-46); MONOCYTES ABSOLUTE AUTO 0.82 K/mm3 (0.16-1.47); MONOCYTES PERCENT AUTO 8 % (4-13); Mean Corpuscular HGB Conc 32.8 g/dL (31.5-36.5); Mean Corpuscular Volume 95 fL (80-100); Mean Platelet Volume 9.5 fL (9.1-12.4); NEUTROPHILS ABSOLUTE AUTO 7.67 K/mm3 (1.96-9.15); NEUTROPHILS PERCENT AUTO 79 % (41-73); Platelet Count 558 K/mm3 (150-400); RDW Coefficient Variation 13.8 % (11.7-14.2); Red Blood Cell Count 3.13 M/mm3 (4.30-5.90); White Blood Cell Count 9.73 K/mm3 (4.00-11.30)
--- NOTE | 2018-11-13 05:02 | NUR ---
SHIFT SUMMARY PT HAD REQUESTED TO HAVE RECTAL TUBE REMOVED. TUBE WAS REMOVED AND PT WAS ABLE TO HAVE BM IN BSC. ATTENDS PLACED ON PT. PT CONTINUES TO HAVE DISCOMFORT TO ROB AREA AND BARRIER CREAM APPLIED REGULARLY. PT HAS BEEN ABLE TO SLEEP OFF AND ON DURING SHIFT. PT CONTINUES TO HAVE NECK DISCOMFORT AND IS TX PER EMAR WITH GOOD RELIEF. PT HAS BEEN ABRASIVE AT TIMES WITH STAFF AND PT STATES HE GETS FRUSTRATED DURING THOSE TIMES. PT IS CURRENTLY SLEEPING AND BREATHING EASY. CALL LIGHT IN REACH.
[2018-11-13 05:27] LABS: Albumin, Blood 1.6 g/dL (3.4-5.0); Anion Gap 5 mmol/L (6-16); Blood Urea Nitrogen 6 mg/dL (8-24); Bun/Creatinine Ratio 8.9 (12.0-20.0); CO2, Blood 23 mmol/L (21-32); Calcium, Blood 7.7 mg/dL (8.5-10.1); Chloride, Blood 112 mmol/L (98-108); Creatinine, Blood 0.67 mg/dL (0.60-1.20); Glomerular Filtration Rate >60 (60-); Glucose, Blood 100 mg/dL (70-99); Potassium, Blood 3.2 mmol/L (3.5-5.5); Sodium, Blood 140 mmol/L (136-145)
[2018-11-13 08:07] LABS: HIV SCREEN 4TH GENERATION WRFX Non Reactive (Non Reactive)
[2018-11-13 14:06] LABS: FATS, NEUTRAL Normal (.); FATS, TOTAL Normal (.)
--- NOTE | 2018-11-13 17:59 | NUR ---
PT ALERT AND ORIENTED X4 THROUGHOUT THIS SHIFT. PT SITTING UP IN BED WATCHING TELEVISION FOR MOST OF THIS SHIFT. PT INCONTENENT OF STOOL MULTIPLE TIMES DURING THIS SHIFT REQUIRING FREQUENT CHANGING. PT UP TO BEDSIDE CAMODE 1X DURING THIS SHIFT FOR BM. PT DECONDITIONED BUT ABLE TO REPOSITION IN BED WITHOUT ASSISTANCE. PT CALM AND COOPERATIVE WITH STAFF DURING THIS SHIFT. CALL LIGHT IN REACH, PT STATES NO ADDITIONAL NEEDS AT THIS TIME. WILL CONTINUE TO MONITOR.
[2018-11-14 06:23] LABS: Anion Gap 6 mmol/L (6-16); Blood Urea Nitrogen 5 mg/dL (8-24); Bun/Creatinine Ratio 8.1 (12.0-20.0); CO2, Blood 22 mmol/L (21-32); Calcium, Blood 7.9 mg/dL (8.5-10.1); Chloride, Blood 111 mmol/L (98-108); Creatinine, Blood 0.62 mg/dL (0.60-1.20); Glomerular Filtration Rate >60 (60-); Glucose, Blood 133 mg/dL (70-99); Magnesium, Blood 1.9 mg/dL (1.6-2.4); Phosphorus, Blood 2.2 mg/dL (2.5-4.9); Potassium, Blood 3.6 mmol/L (3.5-5.5); Sodium, Blood 139 mmol/L (136-145)
--- NOTE | 2018-11-14 06:33 | NUR ---
PREPARATION OPERATOR SUMMARY PT AAOX4 AND PLEASANT. PT EXTREMELY WEAK, REQUIRING 2 PERSON MAX ASSIST WITH AMBULATION. PT CONTINUES TO HAVE FREQUENT LOOSE STOOLS WHICH HE SAYS HE'S HAD FOR OVER 6 YEARS. PT NOT ABLE TO CONTROL BOWELS, REQUIRES FREQUENT ATTENDS CHANGES. PT REPORTS LIGHT HEADEDNESS AT TIMES SIMILAR TO BEFORE HE CAME TO HOSPITAL, HOWEVER VSS. WILL CONTINUE TO MONITOR.
[2018-11-14] MEDS ORDERED: FERSU300 PO (11:36)
[2018-11-14] MEDS ORDERED: MIDO5 PO (11:36)
[2018-11-14] MEDS ORDERED: VITAMIN D350000 UNIT PO (11:37)
[2018-11-14 12:41] LABS: Adenovirus F 40/41 Not Detected (NOT DETECT); Astrovirus Not Detected (NOT DETECT); Campylobacter Sp Not Detected (NOT DETECT); Cryptosporidium Not Detected (NOT DETECT); Cyclospora Cayetanensis Not Detected (NOT DETECT); E. Coli O157 Not Detected (NOT DETECT); Entamoeba Histolytica Not Detected (NOT DETECT); Enteroaggregative E. coli-EAEC Not Detected (NOT DETECT); Enteropathogenic E. coli-EPEC Not Detected (NOT DETECT); Enterotoxigenic E. coli-ETEC Not Detected (NOT DETECT); Giardia Lamblia Not Detected (NOT DETECT); Norovirus GI/GII Not Detected (NOT DETECT); Plesiomonas Shigelloides Not Detected (NOT DETECT); Rotavirus A Not Detected (NOT DETECT); Salmonella Sp Not Detected (NOT DETECT); Sapovirus Not Detected (NOT DETECT); Shiga Toxin-prod E. coli-STEC Not Detected (NOT DETECT); Shigella/Enteroin E. coli-EIEC Not Detected (NOT DETECT); Vibrio Cholerae Not Detected (NOT DETECT); Vibrio Sp Not Detected (NOT DETECT); Yersinia Enterocolitica Not Detected (NOT DETECT)
[2018-11-14 13:08] LABS: ATYPICAL PANCA <1:20 titer (Neg:<1:20); CYTOPLASMIC (C-ANCA) <1:20 titer (Neg:<1:20); PERINUCLEAR (P-ANCA) <1:20 titer (Neg:<1:20)
--- NOTE | 2018-11-14 16:14 | NUR ---
SUMMARY/DISCHARGE TRANSPORTATION ARRANGED BY DISCHARGE PLANNING, PT TAKEN OUT SAFELY VIA WHEELCHAIR AND VALVE INSERTER NOTIFIED
[2018-11-15 03:08] LABS: ENDOMYSIAL ANTIBODY IGA Negative (Negative); T-TRANSGLUTAMINASE (TTG) IGA <2 U/mL (0-3)
== END 2018-11-14 15:55 | disposition home or self-care (01) | DRG 871 ==
LOC: ER 04:43 → ICUW 07:21 → MEDS 11-12 16:57 → ENPENDDIS 11-14 10:53 → MEDS 11-14 15:55
PROVIDERS: Emergency Medicine; Internal Medicine; Internal Medicine Gastroenterology; ADMIT Internal Medicine
PROC: 02HV33Z Insertion of Infusion Device into Superior Vena Cava, Percutaneous Approach (ICD-10-PCS; principal; 2018-11-10)
DX: A41.9 Sepsis, unspecified organism (principal); E43 Unspecified severe protein-calorie malnutrition; K92.0 Hematemesis; J90 Pleural effusion, not elsewhere classified; I42.0 Dilated cardiomyopathy; Z68.1 Body mass index [BMI] 19.9 or less, adult; E87.6 Hypokalemia; E11.9 Type 2 diabetes mellitus without complications; I95.9 Hypotension, unspecified; E83.39 Other disorders of phosphorus metabolism; R55 Syncope and collapse; K52.9 Noninfective gastroenteritis and colitis, unspecified
CPT/HCPCS: 0097U; 36415; 36569; 51702; 70450; 71045; 72125; 74177; 80047; 80048; 80053; 80069; 81001; 82271; 82306; 82533; 82550; 82553; 82607; 82705; 82728; 82746; 82947; 83036; 83516; 83540; 83550; 83605; 83735; 83880; 83993; 84100; 84484; 85014; 85018; 85025; 85651; 86140; 86255; 86671; 86850; 86900; 86901; 87040; 87086; 87177; 87209; 87389; 93005; 93010; 93308; 96361; 96365-59; 96375; 97110; 97162; 97165; 97530; 99285-25; A9270; C1751; C9113; J2405; J2543; J2550; J3010; J7030; J7050; J7060; Q9967

== ENCOUNTER 2019-07-23 19:26 | Emergency (ER) | payer SELFPAY ==
[~2019-07-23] VITALS: Ht 182.9 cm; Wt 63.5 kg
[~2019-07-23 19:26] MED LIST changes: +FERSU300 PO; +MIDO5 PO; +VITAMIN D350000 UNIT PO
[2019-07-23] MEDS ORDERED: Norco 5-325 Ta1 EACH PO (20:22)
== END 2019-07-23 21:17 | disposition home or self-care (01) ==
LOC: ER 19:26
DX: S62.316A Displaced fracture of base of fifth metacarpal bone, right hand, initial encounter for closed fracture (principal); Z88.5 Allergy status to narcotic agent; Z79.899 Other long term (current) drug therapy; E11.9 Type 2 diabetes mellitus without complications; I42.9 Cardiomyopathy, unspecified; F17.200 Nicotine dependence, unspecified, uncomplicated; W23.0XXA Caught, crushed, jammed, or pinched between moving objects, initial encounter
CPT/HCPCS: 73130; 99283-25; A9270

== ENCOUNTER 2021-04-29 11:05 | Day surgery (SDC) | payer OTHER ==
[~2021-04-29] VITALS: Ht 180.3 cm; Wt 64.2 kg
[~2021-04-29 11:05] MED LIST changes: +IBUPROFEN200 M1 PO; +Norco 5-325 Ta1 EACH PO; +PREG50 PO; +VITAMIN D310 MC5 PO
== END 2021-04-29 13:07 | disposition home or self-care (01) ==
LOC: ORSCSDS 11:05
PROVIDERS: Internal Medicine Gastroenterology
PROC: 0DB78ZX Excision of Stomach, Pylorus, Via Natural or Artificial Opening Endoscopic, Diagnostic (ICD-10-PCS; principal; 2021-04-29 12:15)
PROC: 0DBE8ZX Excision of Large Intestine, Via Natural or Artificial Opening Endoscopic, Diagnostic (ICD-10-PCS; principal; 2021-04-29 12:15)
PROC: 0DBA8ZX Excision of Jejunum, Via Natural or Artificial Opening Endoscopic, Diagnostic (ICD-10-PCS; principal; 2021-04-29 12:15)
PROC: 0DB98ZX Excision of Duodenum, Via Natural or Artificial Opening Endoscopic, Diagnostic (ICD-10-PCS; principal; 2021-04-29 12:15)
DX: R19.7 Diarrhea, unspecified (principal); R31.9 Hematuria, unspecified; R10.30 Lower abdominal pain, unspecified; Z79.899 Other long term (current) drug therapy; F17.220 Nicotine dependence, chewing tobacco, uncomplicated
CPT/HCPCS: 82947; 88305; 88342; J2250; J2704; J7120

== ENCOUNTER 2023-02-26 09:14 | Inpatient (IN) | payer OTHER ==
[2023-02-26] VITALS (38 sets, daily range): BP systolic 78–112; BP diastolic 67–94
[~2023-02-26] VITALS: Ht 180.3 cm; Wt 71.7 kg
[2023-02-26 10:02] LABS: BASOPHILS ABSOLUTE AUTO 0.02 K/mm3 (0.00-0.23); BASOPHILS PERCENT AUTO 0 % (0-2); EOSINOPHILS PERCENT AUTO 0 % (0-6); Hematocrit 41.5 % (37.0-53.0); Hemoglobin 13.7 g/dL (13.5-17.5); IMMATURE GRAN ABSOLUTE AUTO 0.18 K/mm3 (0.00-0.10); IMMATURE GRAN PERCENT AUTO 1 % (0-1); LYMPHOCYTES ABSOLUTE AUTO 1.25 K/mm3 (0.84-5.20); LYMPHOCYTES PERCENT AUTO 7 % (21-46); MONOCYTES ABSOLUTE AUTO 1.43 K/mm3 (0.16-1.47); MONOCYTES PERCENT AUTO 8 % (4-13); Mean Corpuscular HGB 31.3 pg (26.0-34.0); Mean Corpuscular Volume 95 fL (80-100); Mean Platelet Volume 11.5 fL (9.1-12.4); NEUTROPHILS ABSOLUTE AUTO 16.17 K/mm3 (1.96-9.15); NEUTROPHILS PERCENT AUTO 85 % (41-73); NRBC ABSOLUTE 0.02 K/mm3 (0.00-0.02); NRBC Auto 0.1 /100 WBC (0.0-0.2); Platelet Count 183 K/mm3 (150-400); RDW Coefficient Variation 14.6 % (11.7-14.2); RDW Standard Deviation 50.4 fL (35.1-46.3); Red Blood Cell Count 4.38 M/mm3 (4.30-5.90); White Blood Cell Count 19.05 K/mm3 (4.00-11.30)
[2023-02-26 10:10] LABS: Calcium, Ionized (POC) 1.03 mmol/L (1.10-1.46); Chloride (POC) 101 mmol/L (98-108); Creatinine (POC) 2.4 mg/dL (0.8-1.3); Glucose (ISTAT POC) 228 mg/dL (70-99); Hemoglobin (POC) 13.6 g/dL (13.5-17.5); Potassium (POC) 3.1 mmol/L (3.5-5.5); Sodium (POC) 137 mmol/L (135-148); Total CO2 (POC) 20 mmol/L (21-32)
[2023-02-26 10:55] LABS: Albumin/Globulin Ratio 0.7 (0.8-1.8); Bilirubin, Total 0.4 mg/dL (0.1-1.0); Calcium, Blood 8.9 mg/dL (8.5-10.1); Creatinine, Blood 2.17 mg/dL (0.60-1.20); Globulin, Blood 4.1 g/dL (2.2-4.0); Potassium, Blood 3.6 mmol/L (3.5-5.5); Total Protein, Blood 7.1 g/dL (6.4-8.2)
[2023-02-26 13:40] LABS: International Normalized Ratio 1.12; Prothrombin Time Results 11.7 Sec (9.7-11.5)
[2023-02-26 14:05] LABS: Source, Urine Clean Catch
[2023-02-26 14:22] LABS: Appearance, Urine Cloudy (Clear); Bilirubin, Urine Neg (Neg); Blood, Urine 5+ (Neg); Color, Urine Yellow (P-Yellow); Glucose Qualitative, Urine Neg (Neg); Ketones, Urine 1+ (Neg); Leukocyte Esterase, Urine 3+ (Neg); Nitrite, Urine Neg (Neg); Protein, Urine 3+ (Neg); Specific Gravity, Urine 1.025 (1.003-1.022); Urobilinogen, Urine NORM (Normal)
[2023-02-26 14:37] LABS: Red Blood Cells, Urine TNTC /hpf (0-2); White Blood Cells, Urine TNTC /hpf (0-5)
[2023-02-26 14:38] LABS: Bacteria Many /hpf; Renal Epithelial Rare /hpf (0-Rare); Squamous Epithelial Cells Not Seen /hpf (Few)
--- NOTE | 2023-02-26 15:15 | NUR ---
PATIENT ARRIVED TO UNIT AT 1455. PATIENT INTUBATED, UNRESPONSIVE, NOT ON SEDATION. PATIENT AFEBRILE. NO SIGNS OF PAIN NOTED. PATIENT ON ACVC 16, TV 450, PEEP 5 AND 40% FIO2. LUNGS CLEAR TO AUSCULTATION. PATIENT IN SR WITH BBB, HR IN THE 70S. MAPS 65 AND GREATER ON EPINEPHRINE DRIP AT 6 MCG/ MINUTE. OG TO LIS. GARCIA DRAINING DAVID COLORED URINE. TEMP PACER TO R IJ @ 59 CM; RATE 60, OUTPUT 5 MA, AND SENSE 0.6 MV. LR INFUSING AT 100 MLS/ HOUR. BED LOW, CALL LIGHT IN REACH. CARE CONTINUES.
--- NOTE | 2023-02-26 16:33 | NUR ---
Tachyarrhythmias: Pt having runs of tachycardia into the 120's-130's, then will slow back down and be paced in the 60's. Call to Dr. Prabhakar to discuss. Recommendations to switch to norepinephrine for BP support instead of the epinephrine. Discussed with Dr. Martinez and new orders placed.
--- NOTE | 2023-02-26 17:30 | NUR ---
JENNI ESTRADA WITH [facility] HERE TO SEE PATIENT. JENNI STATED SHE WAS CALLED BY PATIENT'S FAMILY TO CHECK UP ON HIM AND HIS DOG. PATIENT NODDED THAT IT WAS OKAY TO GIVE JENNI HIS HOUSE KEYS TO TAKE CARE OF HIS DOGS. KEYS TO JENNI. ALL OTHER BELONGINGS REMAIN IN PATIENT ROOM IN BELONGINGS BAG.
--- NOTE | 2023-02-26 19:15 | NUR ---
SHIFT SUMMARY PATIENT HAS REMAINED INTUBATED. PATIENT NOW ON SEDATION BECAUSE WAS WAKING UP, ABLE TO FOLLOW SIMPLE COMMANDS BUT THEN BECAME AGITATED AND ANXIOUS. PATIENT HAS REMAINED AFEBRILE. PATIENT GIVEN PRN ATIVAN AND FENTANYL OT THIS SHIFT FOR SIGNS OF PAIN AND ANXIETY. PATIENT REMAINS ON SAME VENT SETTINGS. PATIENT HAS REMAINED EITHER SR WITH BBB OR TACHY WITH BBB. MAPS HAVE REMAINED 65 AND GREATER. EPINEPHRINE TITRATED DOWN AND LEVOPHED STARTED. OG DRAINIING COFFEE GROUND DRAINAGE; DR. ADKINS NOTIFIED AND HEPARIN PLACED ON SB. GARCIA DRAINED DAVID COLORED URINE. NO CHANGES TO SKIN NOTED; PATIENT REPOSITIONED Q2H. LR AT [address] OF HEAD PERFORMED. REPORT GIVEN TO ASSUMING MECHANICAL PLANNER NURSE.
--- NOTE | 2023-02-26 20:00 | NUR ---
ASSUMED CARE OF PT AT 1900. REPORT RECEIVED AT BEDSIDE. PT PRESENTS IN BED. INTUBATED. AC 16, Tv 450, PEEP 5.0, FIO2 40 PERCENT. DID DECREASE FIO2 TO 35 PERCENT. PT MAINTAINS > 90 PERCENT SATURATED WITH THIS. PT WILL ROUSE TO TACTILE STIMULI WITH PROPOFOL AT 35 MCG'S PER KG/MIN. LEVOPHED AT 3 MCG'S. SVETLANA REVIEW CHART AND PLAN OF CARE FOR THIS PT. DRIPS AND TRANSVENOUS PACER VERIFIED WITH OFFGOING RN.
[2023-02-26 20:50] LABS: Source, Urine Foley catheter
[2023-02-26 20:56] LABS: Bilirubin, Urine Neg (Neg); Blood, Urine 5+ (Neg); Glucose Qualitative, Urine 2+ (Neg); Ketones, Urine Neg (Neg); Leukocyte Esterase, Urine 3+ (Neg); Nitrite, Urine Neg (Neg); Protein, Urine 2+ (Neg); Urobilinogen, Urine NORM (Normal)
[2023-02-26 21:01] LABS: Appearance, Urine Hazy (Clear); Color, Urine Yellow (P-Yellow)
[2023-02-26 21:02] LABS: Granular Casts 0-2 /lpf (0); White Blood Cells, Urine TNTC /hpf (0-5)
[2023-02-26 21:04] LABS: Bacteria Many /hpf; Renal Epithelial Rare /hpf (0-Rare); Transitional Epithelial Cells Rare /hpf (0-Rare)
[2023-02-26 21:05] LABS: Squamous Epithelial Cells Rare /hpf (Few)
[2023-02-27] VITALS (83 sets, daily range): BP systolic 80–102; BP diastolic 65–87
[2023-02-27 04:51] LABS: BASOPHILS ABSOLUTE AUTO 0.01 K/mm3 (0.00-0.23); BASOPHILS PERCENT AUTO 0 % (0-2); EOSINOPHILS PERCENT AUTO 0 % (0-6); IMMATURE GRAN ABSOLUTE AUTO 0.08 K/mm3 (0.00-0.10); IMMATURE GRAN PERCENT AUTO 1 % (0-1); LYMPHOCYTES ABSOLUTE AUTO 1.18 K/mm3 (0.84-5.20); LYMPHOCYTES PERCENT AUTO 9 % (21-46); MONOCYTES ABSOLUTE AUTO 0.99 K/mm3 (0.16-1.47); MONOCYTES PERCENT AUTO 8 % (4-13); Mean Corpuscular HGB 31.3 pg (26.0-34.0); Mean Corpuscular HGB Conc 33.3 g/dL (31.5-36.5); Mean Corpuscular Volume 94 fL (80-100); Mean Platelet Volume 11.7 fL (9.1-12.4); NEUTROPHILS PERCENT AUTO 82 % (41-73); NRBC ABSOLUTE 0.17 K/mm3 (0.00-0.02); NRBC Auto 1.4 /100 WBC (0.0-0.2); Platelet Count 139 K/mm3 (150-400); RDW Coefficient Variation 14.6 % (11.7-14.2); RDW Standard Deviation 50.2 fL (35.1-46.3); Red Blood Cell Count 3.84 M/mm3 (4.30-5.90); White Blood Cell Count 12.56 K/mm3 (4.00-11.30)
[2023-02-27 05:11] LABS: Bun/Creatinine Ratio 25.6 (12.0-20.0); Calcium, Blood 8.3 mg/dL (8.5-10.1); Creatinine, Blood 1.8 mg/dL (0.60-1.20); Potassium, Blood 3.3 mmol/L (3.5-5.5)
--- NOTE | 2023-02-27 05:14 | NUR ---
PT HAS HAD ONLY OBSERVED BRADYCARDIA EVENTS WHEREAS PACER NEEDS TO PACE. VERY SHORT IN DURATION. CONTINUES ON 3 MCG'S LEVOPHED. WHEN REVIEWING OLD CHART FROM STAY IN 2019, PT'S BLOOD PRESSURES WERE COMPARATIVE TO CURRENT. DOES TAKE MIDODRINE AT HOME FOR BP SUPPORT. HAS MAINTAINED WELL WITH PROPOFOL AT 35 MCG'S/KG/MIN. WILL DO VACATION SEDATION THIS AM.
--- NOTE | 2023-02-27 05:50 | NUR ---
SEDATION VACATION DONE THIS AM. PT ABLE TO SQUEEZE FINGERS WHEN ASKED. CURRENTLY BACK TO PROPOFOL SEDATION AT 35 MCG'S/KG/MIN.
--- NOTE | 2023-02-27 08:02 | NUR ---
INITIAL ASSESSMENT PATIENT INTUBATED AND SEDATED. MINIMAL RESPONSE TO VERBAL STIMULI BUT DOES MOVE HEAD AND EYE LIDS SLIGHTLY. PATIENT WITHDRAWS FROM NOXIOUS STIMULI. NO SIGNS OF PAIN NOTED. PATIENT HAS CORE TEMP OF 100.2 DEGREES FAHRENHEIT THIS AM. PATIENT ON VENT SETTINGS OF ACVC 16, TV 450, PEEP 5 AND 35% FIO2. PATIENT IN ST WITH BBB, HR IN THE LOW 100S. SBP 80S TO 90S. LEVOPHED AT 2 MCG/ MINUTE TO KEEP MAPS 65 AND GREATER. HYPOACTIVE BOWEL SOUNDS NOTED. OG DRAINING SMALL AMOUNT OF BROWN/ COFFEE GROUND LIQUID. GARCIA DRAINING YELLOW COLORED URINE. R IJ TEMP PACER IN PLACE AT 59 CM; RATE SET AT 60, OUTPUT SET AT 5.0 MA AND SENSE 0.6 MV. NS TKO. PROPOFOL AT 35 MCG/ KG/ MINUTE. BED LOW, CALL LIGHT IN REACH. CARE CONTINUES.
--- NOTE | 2023-02-27 09:47 | NUR ---
DR. ADKINS UPDATED ON PATIENT STATUS. INFORMED THAT PATIENT HAD TMAX OF 100.7 DEGREES FAHRENHEIT ON GAS CHARGER. INFORMED THAT PATIENT HAD AROUND 200 MLS OF COFFEE GROUND/ BROWN DRAINAGE FROM OG ON GAS CHARGER. INFORMED THAT HEPARIN DRIP STILL ON SB. INFORMED THAT PATIENT PACED TWICE LAST NIGHT PER RN REPORT. INFORMED THAT POTASSIUM 3.3 THIS AM AND THAT REPLACEMENT HAS BEEN ORDERED BY DR. MUÑIZ. INFORMED THAT PATIENT ON LEVOPHED AT 2 MCG/ MINUTE. INFORMED THAT GAS CHARGER RN STATED THAT PATIENT ON MIDODRINE IN THE PAST PER PAST DOCUMENTATION. DR. ADKINS STATED TO RESTART HEPARIN DRIP. PHARMACY INFORMED.
--- NOTE | 2023-02-27 12:19 | NUR ---
PATIENT HAS TEMP OF 100.2 DEGREES FAHRENHEIT. HR LOW 100S TO 1-TEENS. SBP 80S TO 90S. LEVOPHED ON SB. HEPARIN DRIP AT 12 UNITS/ KG/ HOUR. PROPOFOL AT 30 MCG/ KG/ MINUTE. FIO2 AT 30%. NO OTHER ACUTE CHANGES NOTED AT THIS TIME. CARE CONTINUES.
--- NOTE | 2023-02-27 14:29 | NUR ---
DR. DENG CALLED FOR UPDATE. UPDATED ON PATIENT STATUS. ORDER TO CHANGE PACEMAKER RATE FROM 60 TO 30.
--- NOTE | 2023-02-27 14:37 | NUR ---
PACER RATE CHANGED TO 30 PPM.
--- NOTE | 2023-02-27 14:56 | NUR ---
pt seen yesterday ian Martinez at bedside. will be in tomorrow hopefully. pt cvery crtical. Hope is to extubate.kps score 30% previous hospice discussions in past.
--- NOTE | 2023-02-27 16:00 | NUR ---
PATIENT AFEBRILE. HR IN THE 90S. SBP IN THE 80S. RATE OF PACER SET AT 30. NO OTHER ACUTE CHANGES TO NOTE ON AT THIS TIME. CARE CONTINUES.
[2023-02-27 16:45] LABS: Hematocrit 34.4 % (37.0-53.0); Hemoglobin 11.6 g/dL (13.5-17.5)
--- NOTE | 2023-02-27 18:33 | NUR ---
SHIFT SUMMARY PATIENT REMAINED INTUBATED AND SEDATED THIS SHIFT. PATIENT DID HAVE SEDATION VACATION THIS SHIFT. PATIENT WAS ABLE TO FOLLOW SOME SIMPLE COMMANDS THIS SHIFT AND WRITE ON CLIPBOARD TO NURSE TO COMMUNICATE. PATIENT PLACED BACK ON SEDATION FOR AGITATION AND ANXIOUSNESS AFTER DR. ADKINS STATED HE WOULD NOT BE EXTUBATED TODAY. PATIENT HAD TMAX OF 100.5 DEGREES FAHRENHEIT THIS SHIFT. LUNGS REMAINED CLEAR. PATIENT REMAINED ON ACVC 16, TV 450, PEEP 5 AND FIO2 DECREASED FROM 35 TO 30%. PATIENT REMAINED SR TO ST WITH BBB, HR 90S TO 1-TEENS. SBP 80S TO LOW 100S. LEVOPHED PLACED ON SB THIS SHIFT AND IS STILL OFF. PACER RATE DECREASED FROM 60 TO 30 PPM. NO EPISODES OF PACING NOTED THIS SHIFT. NO BM THIS SHIFT. OG HAD NO OUTPUT THIS SHIFT. GARCIA DRAINED 750 MLS OF YELLOW COLORED URINE. NO CHANGES TO SKIN NOTED. HEPARIN STARTED THIS AM AND IS NOW AT 13 UNITS/ KG/ HOUR. PROPOFOL AT 30 MCG/ KG/ MINUTE. NS TKO. ECHO PERFORMED THIS SHIFT. CT OF ABD/ PELVIS PERFORMED THIS SHIFT. BLOOD SUGARS 130 AND 147 THIS SHIFT. CALLED AND UPDATED. STATES SHE MAY BE IN TOMORROW TO VISIT. NO SIGNS OF PAIN OR DISCOMFORT NOTED AT THIS TIME. BED LOW, CALL LIGHT IN REACH. REPORT WILL BE GIVEN TO ASSUMING EMS DIRECTOR NURSE SHORTLY.
--- NOTE | 2023-02-27 19:00 | NUR ---
CARE ASSUMPTION DURING BEDSIDE SHIFT REPORT Safia JAIN RN THE PT IS LYING IN BED INTUBATED ON THE VENTILATOR. ET TUBE CONFIRMED 8.0 23CM TO THE TEETH. VENTILATOR SETTINGS CONFIRMED 16/450/5.0 W 30% FIO2. PT IN SEDTAED W PROPOFOL RUNNING AT 30. HEPARIN GTT CONFIRMED RUNNING AT AT 13. GTT'S INFUSING INTO CL PLACED IN PT'S R GROIN, SITE IS C/D/I. PT HAS TEMP PACEMAKER IN [facility], SETTINGS CONFIRMED W RATE OF 30/ OUTPUT OF 5.0 MA, SENSING AT 6MV. PT'S MONITOR SHOWING SR98 W BBB. BP STABLE W MAP >65 AND NARROW PULSE PRESSURE. PT HAS TEMP GARCIA IN PLACE SHOWING CLEAR YELLOW URINE IN BAG AND AFEBRILE ON THE MONITOR. CARE ASSUMED AT THIS TIME.
--- NOTE | 2023-02-27 20:38 | NUR ---
FAMILY CONTACT THIS RN SPOKE W PT'S SPOUSE ERICA ON THE PHONE. THIS RN GAVE SPOUSE AN UPDATE ON THE PT'S CURRENT CONDITION AND THAT HE IS NOT CURRENTLY ON THE LEVOPHED WHICH SHE WAS HAPPY TO HEAR. ERCIA VERBALIZING INTENT TO COME TOMMOROW TO SEE THE PT.
[2023-02-28] VITALS (70 sets, daily range): BP systolic 82–98; BP diastolic 70–85
[2023-02-28 04:29] LABS: BASOPHILS ABSOLUTE AUTO 0.02 K/mm3 (0.00-0.23); BASOPHILS PERCENT AUTO 0 % (0-2); EOSINOPHILS ABSOLUTE AUTO 0.03 K/mm3 (0.00-0.68); EOSINOPHILS PERCENT AUTO 0 % (0-6); Hematocrit 37.8 % (37.0-53.0); Hemoglobin 12.5 g/dL (13.5-17.5); IMMATURE GRAN ABSOLUTE AUTO 0.15 K/mm3 (0.00-0.10); IMMATURE GRAN PERCENT AUTO 1 % (0-1); LYMPHOCYTES ABSOLUTE AUTO 1.27 K/mm3 (0.84-5.20); LYMPHOCYTES PERCENT AUTO 11 % (21-46); MONOCYTES ABSOLUTE AUTO 1.16 K/mm3 (0.16-1.47); MONOCYTES PERCENT AUTO 10 % (4-13); Mean Corpuscular HGB 31.3 pg (26.0-34.0); Mean Corpuscular HGB Conc 33.1 g/dL (31.5-36.5); Mean Corpuscular Volume 95 fL (80-100); NEUTROPHILS ABSOLUTE AUTO 9.03 K/mm3 (1.96-9.15); NEUTROPHILS PERCENT AUTO 77 % (41-73); NRBC ABSOLUTE 0.24 K/mm3 (0.00-0.02); NRBC Auto 2.1 /100 WBC (0.0-0.2); Platelet Count 136 K/mm3 (150-400); RDW Coefficient Variation 14.6 % (11.7-14.2); RDW Standard Deviation 50.8 fL (35.1-46.3); White Blood Cell Count 11.66 K/mm3 (4.00-11.30)
[2023-02-28 04:53] LABS: Bun/Creatinine Ratio 28.1 (12.0-20.0); Calcium, Blood 8.2 mg/dL (8.5-10.1); Creatinine, Blood 1.46 mg/dL (0.60-1.20); Magnesium, Blood 2.7 mg/dL (1.6-2.4); Potassium, Blood 3.5 mmol/L (3.5-5.5)
--- NOTE | 2023-02-28 06:14 | NUR ---
COOKIE BREAKER SUMMARY THE PT HAD AN UNEVENTFUL NIGHT HE SLEPT COMFORTABLY FOR MOST OF THE SHIFT. PT WOULD BRIEFLY OPEN HIS EYES AND FOLLOW SOME SIMPLE COMMANDS WHEN PROMPTED. PT REMAINED ON PROPOFOL AT 25. PT'S MONITOR SHOWED ST 100'S THIS SHIFT W NO BRADYCARDIA OR PACING. BP REMAINS SOFT W NARROW PULSE PRESSURE BUT HE MAINTAINED A MAP >65 W LEVOPHED OFF ALL SHIFT. PT'S SPO2 >94% ON VENT 16/450/5.0 W 30% FIO2. PT HAVING LARGE AMOUNTS OF THIN CLEAR SECRETIONS THIS SHIFT BOTH ORALLY AND IN ET TUBE INLINE. PT AFEBRILE THIS SHIFT. PT'S GARCIA PATENT AND DRAINED 400ML DAVID COLORED URINE THIS SHIFT. NO BM THIS SHIFT. PT RECEIVED CHG BATH THIS SHIFT. OG TUBE ON LIS PRODUCING 100ML DARK GREEN BILE THIS SHIFT. HEPARIN GTT INFUSING UNINTERUPTED ALL SHIFT. WILL REPORT TO ONCOMING RN.
--- NOTE | 2023-02-28 18:47 | NUR ---
Shift summary. Pt continues sedated and ventilated. Propofol titrated up to 40 at 1030am d/t agitation and restlessness. Vent settings unchanged this shift. R/groin central line in place, wnl. Temp pacemaker in place R/IJ, rate 30, output 5, sens 0.6. Temp torres draining to gravity. No acute changes this shift, see chart for further details. Will report off to maintenance mechanic 2nd shift RN.
[2023-03-01] VITALS (54 sets, daily range): BP systolic 66–98; BP diastolic 52–86
[2023-03-01 03:32] LABS: BASOPHILS ABSOLUTE AUTO 0.02 K/mm3 (0.00-0.23); BASOPHILS PERCENT AUTO 0 % (0-2); EOSINOPHILS ABSOLUTE AUTO 0.02 K/mm3 (0.00-0.68); EOSINOPHILS PERCENT AUTO 0 % (0-6); Hematocrit 33.4 % (37.0-53.0); Hemoglobin 11.1 g/dL (13.5-17.5); IMMATURE GRAN ABSOLUTE AUTO 0.23 K/mm3 (0.00-0.10); IMMATURE GRAN PERCENT AUTO 2 % (0-1); LYMPHOCYTES ABSOLUTE AUTO 1.23 K/mm3 (0.84-5.20); LYMPHOCYTES PERCENT AUTO 13 % (21-46); MONOCYTES ABSOLUTE AUTO 1.11 K/mm3 (0.16-1.47); MONOCYTES PERCENT AUTO 12 % (4-13); Mean Corpuscular HGB 31.6 pg (26.0-34.0); Mean Corpuscular HGB Conc 33.2 g/dL (31.5-36.5); Mean Corpuscular Volume 95 fL (80-100); Mean Platelet Volume 11.7 fL (9.1-12.4); NEUTROPHILS ABSOLUTE AUTO 7.07 K/mm3 (1.96-9.15); NEUTROPHILS PERCENT AUTO 73 % (41-73); NRBC ABSOLUTE 0.33 K/mm3 (0.00-0.02); NRBC Auto 3.4 /100 WBC (0.0-0.2); Platelet Count 138 K/mm3 (150-400); RDW Coefficient Variation 14.8 % (11.7-14.2); RDW Standard Deviation 51.3 fL (35.1-46.3); Red Blood Cell Count 3.51 M/mm3 (4.30-5.90); White Blood Cell Count 9.68 K/mm3 (4.00-11.30)
[2023-03-01 03:45] LABS: Anion Gap 9 mmol/L (6-16); Blood Urea Nitrogen 50 mg/dL (8-24); Bun/Creatinine Ratio 30.7 (12.0-20.0); CO2, Blood 25 mmol/L (21-32); Calcium, Blood 7.8 mg/dL (8.5-10.1); Chloride, Blood 109 mmol/L (98-108); Creatinine, Blood 1.63 mg/dL (0.60-1.20); Glomerular Filtration Rate 49 (60-); Glucose, Blood 163 mg/dL (70-99); Phosphorus, Blood 3.1 mg/dL (2.5-4.9); Potassium, Blood 3.4 mmol/L (3.5-5.5); Sodium, Blood 143 mmol/L (136-145)
--- NOTE | 2023-03-01 07:53 | NUR ---
SHIFT SUMMARY NO ACUTE EVENTS T/O NIGHT. PT INTUBATED AND SEDATED. AC/VC 16/450/5/30% RR 16-26. PROPOFOL AND HEPARIN GTT INFUSING. PT GRIMACING WITH ORAL CARE, MOVES EXTREMITIES, DOES NOT FOLLOW COMMANDS OR OPEN EYES. VSS. BP SOFT AT TIMES. SR/ST 90-110'S. TEMP PACER IN PLACE. OGT TO LIS. GARCIA PATENT AND DRAINING TO GRAVITY. PT HAD ONE BM THIS SHIFT. BEDSIDE REPORT GIVEN TO ONCOMING RN.
--- NOTE | 2023-03-01 10:45 | NUR ---
Spiritual Care | Pt. request Pt. is recently extubated, spouse and friend are prersent. Pt. is limited in his ability to verbalize. Pt. displays some confusion as after requesting spiritual care, as he intitially declines care but then Pt. verbalizes that he wants to "make his peace with God." This pharmacy district manager encouraged the Pt. with Pastoral care, and prayers of spiritual reconcilliation. Pt. displayed evidene of increased physical agitation. Gave report to Pts. attending nurse.
--- NOTE | 2023-03-01 11:55 | NUR ---
DR. SPENCER AT BEDSIDE, REMOVED RI TEMP PACER. MANUAL PRESSURE HELD, PETROLEUM GAUZE PLACED, THEN CLEAR OCCLUSIVE DRESSING. AT BEDSIDE. PALLIATIVE CARE RN AND DR. MERIDA AT BEDSIDE.
--- NOTE | 2023-03-01 16:56 | NUR ---
Code status converstion with pt, spouse, [facility] case therapist, provider and PC RN. Pt elects to be DNR. All in attendance are in agreement with DNR status. Pt's spouse is not ready to have goals of care converstion at this time. Plan: Review goals of care with pt's support team tomorrow 03/02/23.
--- NOTE | 2023-03-01 18:11 | NUR ---
SUMMARY PT EXTUBATED AT 0950 TO 2L NC. PT IS ORIENTED TO SELF, FAMILY, AND SITUATION. FOLLOWS COMMNANDS. MOVES SELF IN BED CONSTANTLY AND RESTLESS MOST OF THE DAY. LABILE MOOD, GOES FROM TEARFUL TO ANGRY AND AGITATED WITH STAFF. WHEN PALLIATIVE CARE RN ENTERED THE ROOM THIS AM PT STATES "DNR". PT IS FAMILIAR WITH PALLIATIVE CARE RN AND ALREADY KNEW WHY SHE WAS THERE BEFORE SHE EVEN SPOKE. PT WAS CHANGED TO DNR STATUS BUT STILL WANTS TO PERSUE TREATMENT. THIS AFTERNOON RHYTHM APPEARED CHANGED ON THE MONITOR. EKG DONE AND RESULTS GIVEN TO DR. MERIDA. NO NEW ORDERS. PT DOES NOT COMPLAIN OF CHEST PAIN BUT DOES HAVE BACK PAIN. FENTANYL GIVEN. ATTEMPTED SIPS OF WATER THIS AFTERNOON WITH BEDSIDE SWALLOW EVAL BUT PT BEGAN COUGHING. ONLY USING SWABS FOR MOISTURE NOW. ST EVAL PLACED. AT BEDSIDE ALL DAY.
--- NOTE | 2023-03-01 20:00 | NUR ---
ASSUMED CARE OF PT AT 1900. REPORT RECEIVED. PT PRESENTS IN BED. AWAKE AND MAKING ATTEMPTS TO CLEAR SECRETIONS WITH MODERATE EFFORT COUGH. PT PROVIDED YAUNKEUR TO SELF CLEAR SECRETIONS. PT DEMONSTRATES BEING FORGETFUL. MOVES ABOUT IN BED FREQUENTLY. HEPARIN DRIP VERIFIED WITH OFFGOING RN.
--- NOTE | 2023-03-01 22:30 | NUR ---
DR SPENCER COMES TO SEE PT. HAS DISCUSSION WITH PT CONCERNING HIS WISHES TO HAVE ANGIOGRAM. WITH QUESTIONING, PT'S COGNITION IN SOME QUESTION. DR SPENCER STATES THAT HE WILL READDRESS TOMORROW. ORDER RECEIVED FOR DOSE OF LASIX PO, WELL 2.5 MG LISINOPRIL. PT'S BLOOD PRESSURES SOMEWHAT LOW. OPTED TO RESTART LEVOPHED WITH THESE TWO MEDS BEING GIVEN. WILL MONITOR FOR PT'S RESPONSE. OF NOTE: AFTER DR SPENCER LEAVES THE ROOM, PT STATES "I WILL GO AHEAD AND HAVE THE ANGIOGRAM" THEN SHORTLY THEREAFTER STATES HE WANTS TO GO HOME ON HOSPICE.
[2023-03-02] VITALS (72 sets, daily range): BP systolic 70–104; BP diastolic 52–85
--- NOTE | 2023-03-02 02:33 | NUR ---
LEVOPHED WAS PLACED ON HOLD, AND BLOOD PRESSURES BECAME LOW AGAIN. RESTARTED LEVOPHED AT THIS TIME. CONTINUES ON HEPARIN DRIP. NO S/S BLEEDING. WILL CONTINUE TO MONITOR. PT MEDICATED WITH 1 MG ATIVAN AFTER SPEAKING WITH DR MERIDA CONCERNING PT'S ANXIOUSNESS. THIS HAS BEEN AFFECTIVE TO HELP PT REST SOME.
[2023-03-02 04:45] LABS: Hematocrit 33.6 % (37.0-53.0); Hemoglobin 11.3 g/dL (13.5-17.5); Mean Corpuscular HGB 31.4 pg (26.0-34.0); Mean Corpuscular HGB Conc 33.6 g/dL (31.5-36.5); Mean Corpuscular Volume 93 fL (80-100); Mean Platelet Volume 11.9 fL (9.1-12.4); NRBC ABSOLUTE 0.51 K/mm3 (0.00-0.02); NRBC Auto 3.4 /100 WBC (0.0-0.2); Platelet Count 181 K/mm3 (150-400); RDW Coefficient Variation 14.4 % (11.7-14.2); White Blood Cell Count 14.82 K/mm3 (4.00-11.30)
[2023-03-02 05:08] LABS: Albumin, Blood 2.2 g/dL (3.4-5.0); Anion Gap 12 mmol/L (6-16); Blood Urea Nitrogen 63 mg/dL (8-24); Bun/Creatinine Ratio 33.9 (12.0-20.0); CO2, Blood 22 mmol/L (21-32); Calcium, Blood 7.5 mg/dL (8.5-10.1); Chloride, Blood 104 mmol/L (98-108); Creatinine, Blood 1.86 mg/dL (0.60-1.20); Glomerular Filtration Rate 42 (60-); Glucose, Blood 174 mg/dL (70-99); Phosphorus, Blood 3.9 mg/dL (2.5-4.9); Potassium, Blood 3.3 mmol/L (3.5-5.5); Sodium, Blood 138 mmol/L (136-145)
[2023-03-02 05:39] LABS: BASOPHILS PERCENT MAN 0 % (0-2); EOSINOPHILS PERCENT MAN 0 % (0-6); LYMPHOCYTES ABSOLUTE MAN 1.18 K/mm3 (0.84-5.20); LYMPHOCYTES PERCENT MAN 8 % (21-46); METAMYELOCYTE ABSOLUTE MAN 0.29 K/mm3 (0.00-0.00); METAMYELOCYTE PERCENT MAN 2 % (0-0); MONOCYTES ABSOLUTE MAN 1.77 K/mm3 (0.16-1.47); MONOCYTES PERCENT MAN 12 % (4-13); MYELOCYTE ABSOLUTE MAN 1.03 K/mm3 (0.00-0.00); MYELOCYTE PERCENT MAN 7 % (0-0); NEUTROPHILS ABSOLUTE MAN 10.52 K/mm3 (1.96-9.15); SEG NEUTROPHILS PERCENT MAN 71 % (41-73); TOTAL CELLS COUNTED 100
--- NOTE | 2023-03-02 06:42 | NUR ---
PT HAS BEEN ABLE TO REST SOME AFTER ONE DOSE OF ATIVAN 1 MG. PT HAS KEPT YAUNKEUR AT HAND TO USE TO SELF CLEAR SECRETIONS. LEVOPHED CONTINUES AT 5 MCG'S/MIN TOTAL OF 300 ML URINE OUTPUT EVEN WITH LASIX GIVEN. WILL CONTINUE TO MONITOR PT, AND WILL REPORT OFF TO ONCOMING RN.
--- NOTE | 2023-03-02 07:00 | NUR ---
ASSUMPTION OF CARE: ASSUMED CARE OF PATIENT. PATIENT SITTING IN BED. PATIENT ALERT, SLOW TO RESPOND AND ANSWERING QUESTIONS APPROPRIATELY. PATIENT ABLE TO MAKE NEEDS KNOWN. HEPARIN GTT AT 17 UNITS/KG/HR. LEVOPHED AT 5 MCG/MIN. MAPS >65. SBP IN THE HIGH 90S AND LOW 100S. GARCIA IN PLACE AND DRAINING FREELY YELLOW URINE. SPO2 98-100% ON 2L VIA NC. PATIENT DENIES SOB. PATIENT USING SUCTION INDEPENDENTLY FOR HIS ORAL SECRETIONS. SPUTUM TRAP IN PLACE.
[2023-03-02 12:19] LABS: CHOL/HDL RATIO 4.2; Cholesterol 118 mg/dL (50-200); HDL Cholesterol 28 mg/dL (>39); LDL/HDL RATIO 2.3; Low Density Lipoprotein Chol 65 mg/dL (0-110); Triglycerides 125 mg/dL (30-160); Very Low Density Lipoprot Chol 25 mg/dL (6-32)
--- NOTE | 2023-03-02 18:51 | NUR ---
ELEVATED BNP: PER REQUEST: CALLED DR. SPENCER WITH THE AFTERNOON BNP RESULTS. NEW ORDERS FOR IV LASIX. ENSURED THAT HE WAS AWARE THAT THIS AM'S DOSE WAS HELD PER HOSPITALIST ORDERS. DR. SPENCER REPORTS THAT THE PATIENT REQUIRES FURTHER DIURESIS BEFORE THE ANGIO CAN BE PERFORMED.
--- NOTE | 2023-03-02 18:53 | NUR ---
SHIFT SUMMARY: NEURO: PATIENT ALERT AND ORIENTED X4 THROUGHOUT THE SHIFT. PATIENT SLOW TO RESPOND. PATIENT MOVING LIMBS INDEPENDENTLY. PATIENT UP TO TOILET WITH OT AND UP TO THE CHAIR FOR HIS DAILY BATH WITH THE RN. PATIENT SLOW, BUT STEADY WITH HIS MOVEMENTS. PATIENT REQUIRES REST INBETWEEN TRANSFERS. CARDIAC: PATIENT IN SINUS RHYTHM THROUGHOUT THE SHIFT. SOME PROLONGUED QTC. DR. MUÑIZ AWARE. SBP'S IN HIGH 80S TO LOW 100S. MAPS >65. LEVOPHED GTT CONTINUES TO MAINTAIN MAPS >65. PATIENT NOT READY FOR TITRATION DOWN OF LEVOPHED DURING THIS SHIFT. RESPIRATORY: WHEN AWAKE, PATIENT STABLE ON RA WITH SPO2 IN THE HIGH 90S. DURING SLEEP, PATIENT REQUIRED 2L VIA NC TO MAINTAIN SPO2 >94%. PATIENT HAD FINE CRACKLES IN THE BASES THAT MOSTLY RESOLVED WITH COUGHING. PATIENT COUGHING WITH PINK/KEE SPUTUM PRODUCTION. SAMPLE SENT THIS AM. PATIENT DENIED SHORTNESS OF BREATH WITH REST. GI/: PATIENT DIET ADVANCED. PATIENT HAS A MINIMAL APPETITE. PATIENT REPORTS THAT MOST OF THE FOODS ARE NOT GOOD FOR HIS CHRONS. CHEMICAL PROCESS EQUIPMENT OPERATOR ORDER IN PLACE. PATIENT TOLERATING PO INTAKE WITHOUT NAUSEA. HOWEVER, REPORTS THAT MANY OF THE FOODS SCRATCH HIS THROAT. PROVIDED WITH PRN CEPACOL LOZENGES UPON REQUEST. GARCIA IN PLACE AND DRAINING CLEAR, YELLOW URINE. PSYCHSOCIAL: PATIENT CALM AND APPRECIATIVE OF CARE. PATIENT TEARFUL AT TIMES WHEN DISCUSSING HIS PLAN OF CARE. PATIENT IS ADAMENT THAT HE WILL BE COMPLIANT WITH PO MEDICATIONS AT HOME IF THAT IS WHAT IS NEEDED. PATIENT'S AT THE BEDSIDE TODAY. SHE WAS HELPFUL AND APPRECIATIVE. PATIENT'S SILVERLIGHT DEVELOPER FROM [facility] AND CUTTING TOOL SHARPENER FROM [facility] PROVIDED ASSESSMENT FOR HOME CAREGIVING.
--- NOTE | 2023-03-02 20:00 | NUR ---
ASSUMED CARE OF PT AT 1900. REPORT RECEIVED. PT PRESENTS IN BED. ALERT AND ORIENTED. SOMEWHAT SLOW IN RESPONSES. OF NOTE: MENTATION AND COGNITION HAS IMPROVED SINCE THIS RN'S PREVIOUS SHIFT WITH PT. PT CONTINUES ON LEVOPHED AT 5 MCG'S/MIN. MAP MAINTAINS > 65. O2 2 L/M PER NASAL CANNULA BEING WORN ON FOREHEAD. SATURATIONS > 90 PERCENT. DID REMOVE OXYGEN. WILL MONITOR FOR NEED TO HAVE SUPPLEMENTAL OXYGEN. WILL REVIEW CHART AND PLAN OF CARE FOR THIS PT.
[2023-03-03] VITALS (57 sets, daily range): BP systolic 73–105; BP diastolic 53–94
--- NOTE | 2023-03-03 02:42 | NUR ---
PT HAS BEEN INDEPENDENT IN BED. HAS BEEN ABLE TO REST SOME THIS NIGHT. CONTINUES ON ROOM AIR WHEREAS HIS O2 LEVEL MAINTAINS > 90 PERCENT. NO COMPLAINTS OF NAUSEA TO NOTE. PT DOES STATE THAT HIS LEFT COLLAR BONE IS SORE FROM A FALL AT HOME. WILL CONTINUE TO MONITOR PT.
[2023-03-03 05:27] LABS: Hemoglobin 11.7 g/dL (13.5-17.5); Mean Corpuscular HGB 31.4 pg (26.0-34.0); Mean Corpuscular HGB Conc 33.4 g/dL (31.5-36.5); Mean Corpuscular Volume 94 fL (80-100); Mean Platelet Volume 11.5 fL (9.1-12.4); NRBC ABSOLUTE 0.52 K/mm3 (0.00-0.02); NRBC Auto 4.5 /100 WBC (0.0-0.2); Platelet Count 192 K/mm3 (150-400); RDW Coefficient Variation 14.4 % (11.7-14.2); RDW Standard Deviation 49.3 fL (35.1-46.3); Red Blood Cell Count 3.73 M/mm3 (4.30-5.90); White Blood Cell Count 11.56 K/mm3 (4.00-11.30)
[2023-03-03 05:54] LABS: BAND PERCENT MAN 3 % (0-8); BASOPHILS PERCENT MAN 0 % (0-2); EOSINOPHILS PERCENT MAN 0 % (0-6); LYMPHOCYTES PERCENT MAN 7 % (21-46); METAMYELOCYTE ABSOLUTE MAN 0.11 K/mm3 (0.00-0.00); METAMYELOCYTE PERCENT MAN 1 % (0-0); MONOCYTES PERCENT MAN 13 % (4-13); MYELOCYTE PERCENT MAN 7 % (0-0); NEUTROPHILS ABSOLUTE MAN 8.32 K/mm3 (1.96-9.15); SEG NEUTROPHILS PERCENT MAN 69 % (41-73); TOTAL CELLS COUNTED 100
[2023-03-03 06:03] LABS: Albumin/Globulin Ratio 0.5 (0.8-1.8); Bilirubin, Total 0.7 mg/dL (0.1-1.0); Bun/Creatinine Ratio 32.5 (12.0-20.0); Calcium, Blood 7.5 mg/dL (8.5-10.1); Creatinine, Blood 1.26 mg/dL (0.60-1.20); Globulin, Blood 3.8 g/dL (2.2-4.0); Magnesium, Blood 2.5 mg/dL (1.6-2.4); Phosphorus, Blood 2.1 mg/dL (2.5-4.9); Potassium, Blood 3.4 mmol/L (3.5-5.5); Total Protein, Blood 5.8 g/dL (6.4-8.2)
--- NOTE | 2023-03-03 06:30 | NUR ---
PT UP AND AMBULATES TO TOILET USING FWW. ATTEMPTS BOWEL MOVEMENT AND IS UNSUCESSFUL. DOES COMPLAIN OF BACK PAIN WHICH IS CHRONIC. OPTS TO SIT IN RECLINER CHAIR TO EASE DISCOMFORT. DOES ASK IF THIS HOSPITAL HAS "ICY-HOT" WILL CHECK UPON THIS VERSUS LIDOCAINE PATCH. WILL CONTINUE TO MONITOR PT, AND WILL REPORT OFF TO ONCOMING RN.
--- NOTE | 2023-03-03 12:52 | NUR ---
PT HAS REMAIEND ALERT AND ORIENTED THIS MORNING. HE WAS ON 4 MCG/MIN OF LEVOPHED AT THE START OF SHIFT, BUT THAT HAS BEEN TITRATED OFF WITH MAP CURRENTLY 65 WHILE HE WAS SLEEPING. LUNGS ARE CLEAR, ON RA WHILE AWAKE, REQUIRED 2L/NC WHILE ASLEEP FOR DESATS TO THE 80S. SINUS TACH IN THE LOW 100S. WENT DOWN FOR SWALLOW STUDY TODAY AND IS ON PUREED FOODS. DRINKING THIN LIQUIDS OK, BUT DIDN'T WANT LUNCH. GARCIA WITH CL YELLOW OUTPUT. CONTINUING TO MONITOR.
--- NOTE | 2023-03-03 17:17 | NUR ---
SHIFT SUMMARY PT SPENT MOST OF THE DAY UP IN THE CHAIR FOR COMFORT. LIDOCAINE PATCH APPLIED EARLY THIS AM FOR BACK PAIN AND PT HAD GOOD RELIEF FROM IT. LEVOPHED WAS TITRATED OFF AND MAP HAS REMAINED ABOVE 65MMHG. LUNGS ARE CLEAR, AND PT IS ON RA WHILE AWAKE, REQUIRES 2L WHILE SLEEPING. HAD HIS SWALLOW EVAL TODAY AND IS EATING A SMALL AMT OF FOOD. TAKING LIQUIDS WITHOUT DIFFICULTY. CL YELLOW URINE VIA GARCIA. PT'S SO VISITED THIS AFTERNOON AND WAS UPDATED. PT WORKED WITH PHYSICAL THERAPY, BUT REFUSED OT BECAUSE HE WAS TALKING WITH HIS SON WHOM HE HADN'T SPOKE WITH IN YEARS. CONTINUING TO MONITOR.
--- NOTE | 2023-03-03 20:00 | NUR ---
ASSUMED CARE OF PT AT 1900. REPORT RECEIVED AT BEDSIDE. PT PRESENTS IN RECLINER CHAIR. STATES THAT HE HAS HAD A BETTER DAY. LIDOCAINE PATCH TO LEFT FLANK/HIP HAS HELPED RELIEVE PAIN. BLOOD PRESSURES SOFT, THOUGH NOT REQUIRING LEVOPHED AT THIS TIME. WILL MONITOR. PT ALERT AND ORIENTED. PLEASANT AND COOPERATIVE WITH CARE AND ASSESSMENT. WILL REVIEW CHART AND PLAN OF CARE FOR THIS PT.
[2023-03-04] VITALS (23 sets, daily range): BP systolic 66–83; BP diastolic 54–69
[2023-03-04 05:52] LABS: Hematocrit 33.3 % (37.0-53.0); Hemoglobin 11.1 g/dL (13.5-17.5); Mean Corpuscular HGB 31.4 pg (26.0-34.0); Mean Corpuscular HGB Conc 33.3 g/dL (31.5-36.5); Mean Corpuscular Volume 94 fL (80-100); Mean Platelet Volume 11.5 fL (9.1-12.4); NRBC ABSOLUTE 0.09 K/mm3 (0.00-0.02); NRBC Auto 0.9 /100 WBC (0.0-0.2); Platelet Count 176 K/mm3 (150-400); RDW Coefficient Variation 14.6 % (11.7-14.2); RDW Standard Deviation 50.4 fL (35.1-46.3); Red Blood Cell Count 3.54 M/mm3 (4.30-5.90); White Blood Cell Count 9.63 K/mm3 (4.00-11.30)
[2023-03-04 06:22] LABS: Albumin, Blood 1.9 g/dL (3.4-5.0); Anion Gap 5 mmol/L (6-16); Blood Urea Nitrogen 38 mg/dL (8-24); Bun/Creatinine Ratio 24.8 (12.0-20.0); CO2, Blood 28 mmol/L (21-32); Calcium, Blood 7.4 mg/dL (8.5-10.1); Chloride, Blood 107 mmol/L (98-108); Creatinine, Blood 1.53 mg/dL (0.60-1.20); Glomerular Filtration Rate 53 (60-); Glucose, Blood 162 mg/dL (70-99); Magnesium, Blood 2.5 mg/dL (1.6-2.4); Phosphorus, Blood 2.7 mg/dL (2.5-4.9); Potassium, Blood 3.6 mmol/L (3.5-5.5); Sodium, Blood 140 mmol/L (136-145)
--- NOTE | 2023-03-04 06:26 | NUR ---
PT HAS BEEN ABLE TO REST SOMEWHAT BETTER THIS NIGHT. BLOOD PRESSURES REMAIN LOWER. UPON REVIEW OF OLD CHART FROM 2019, PT HAS HAD THE LOWER BLOOD PRESSURES. WAS TO BE TAKING MIDODRINE 2.5 MG T.I.D. AT HOME BUT HAD NEVER STARTED. WILL PASS THIS INFORMATION TO ONCOMING RN. WILL ASK MD IF THIS WOULD BE A VIABLE OPTION FOR PT. PT HAS HAD LIQUID STOOLS THIS NIGHT. THIS BEING A CHRONIC ISSUE FOR PT. NORMALLY WEARS ATTENDS AT HOME SECONDARY INCONTINENCE TO LIQUID STOOL. ORDER RECEIVED FOR IMMODIUM. HAVE ADMINISTERED DOSE THIS SHIFT. NO FURTHER INCONTINENCE. PT CONTINUES ON HEPARIN DRIP WITHOUT S/S BLEEDING. WILL CONTINUE TO MONITOR PT, AND WILL REPORT OFF TO ONCOMING RN.
[2023-03-04 07:50] LABS: BAND PERCENT MAN 1 % (0-8); BASOPHILS PERCENT MAN 0 % (0-2); EOSINOPHILS ABSOLUTE MAN 0.09 K/mm3 (0.00-0.68); EOSINOPHILS PERCENT MAN 1 % (0-6); LYMPHOCYTES ABSOLUTE MAN 1.54 K/mm3 (0.84-5.20); LYMPHOCYTES PERCENT MAN 16 % (21-46); MONOCYTES ABSOLUTE MAN 1.15 K/mm3 (0.16-1.47); MONOCYTES PERCENT MAN 12 % (4-13); MYELOCYTE ABSOLUTE MAN 0.19 K/mm3 (0.00-0.00); MYELOCYTE PERCENT MAN 2 % (0-0); NEUTROPHILS ABSOLUTE MAN 6.64 K/mm3 (1.96-9.15); SEG NEUTROPHILS PERCENT MAN 68 % (41-73); TOTAL CELLS COUNTED 100
--- NOTE | 2023-03-04 13:08 | NUR ---
Summary. At approximately 1225, while pt was up in chair working with speech therapy, he became dizzy and passed out. Rhythm on monitor was Vtach, no pulse felt. Pt had agonal respirations. at bedside with care team, pt DNR, time of 1230. All personal belongings taken by .
--- NOTE | 2023-03-04 13:14 | NUR ---
"Spiritual Care | EOL family support Pt. passed approx. 1230. This driver trainer was called to give spiritual support to family. Spouse and her friend is present when I enter the room. Spouse is appropriately emotional. Prayed with SPouse and friend. Spouse has chosen [facility] in [place]. Spouse and friend verbalize gratitude for the spiritual care support. Afterward joined a staff debrief event led by Dr. Wei. Gave encouragement and assistance to affected staff members. Encouraged one staff member to talk to supervisor aircraft cleaning to see if they can leave shift early today."
--- NOTE | 2023-03-04 13:32 | NUR ---
End of Life Supportive Visit PC RN called to pt's room as he was in Vtach with agonal respirations with DNR in place. Spouse at bedside, holding pt's hand, and was very distraught. Pt passed a few moments later. Primary RN at bedside to pronounce TOD. This PC RN provided support to spouse, walked outside per her request "for air". Greeted Bilingual Executive Assistant, Hodan in the parking lot. Hodan provided spouse with home options. [facility] was selected by spouse. Notified Primary RN and photo intern. After returning to pt's room, Eligibility Manager Francisco arrived. Will remain available to family and staff as needed.
== END 2023-03-04 12:30 | DRG 260 ==
LOC: ER 09:14 → ICUE 13:47
PROVIDERS: Emergency Medicine; Family Medicine; Internal Medicine Critical Care Medicine; Student in an Organized Health Care Education/Training Program; ADMIT Internal Medicine
PROC: 02HK3JZ Insertion of Pacemaker Lead into Right Ventricle, Percutaneous Approach (ICD-10-PCS; principal; 2023-02-26)
PROC: 5A12012 Performance of Cardiac Output, Single, Manual (ICD-10-PCS; 2023-02-26)
PROC: 3E033XZ Introduction of Vasopressor into Peripheral Vein, Percutaneous Approach (ICD-10-PCS; 2023-02-26)
PROC: 0BH17EZ Insertion of Endotracheal Airway into Trachea, Via Natural or Artificial Opening (ICD-10-PCS; 2023-02-26)
PROC: 06HY33Z Insertion of Infusion Device into Lower Vein, Percutaneous Approach (ICD-10-PCS; 2023-02-26)
PROC: 5A1945Z Respiratory Ventilation, 24-96 Consecutive Hours (ICD-10-PCS; 2023-02-26)
PROC: 5A1223Z Performance of Cardiac Pacing, Continuous (ICD-10-PCS; 2023-02-26)
PROC: 3E03329 Introduction of Other Anti-infective into Peripheral Vein, Percutaneous Approach (ICD-10-PCS; 2023-02-26)
DX: I44.2 Atrioventricular block, complete (principal); A41.9 Sepsis, unspecified organism; I21.4 Non-ST elevation (NSTEMI) myocardial infarction; I50.23 Acute on chronic systolic (congestive) heart failure; J69.0 Pneumonitis due to inhalation of food and vomit; J96.00 Acute respiratory failure, unspecified whether with hypoxia or hypercapnia; R65.21 Severe sepsis with septic shock; Z66 Do not resuscitate; R40.20 Unspecified coma; J95.851 Ventilator associated pneumonia; N17.9 Acute kidney failure, unspecified; K90.829 Short bowel syndrome, unspecified; E87.20 Acidosis, unspecified; K50.90 Crohn's disease, unspecified, without complications; I42.0 Dilated cardiomyopathy; Z99.11 Dependence on respirator [ventilator] status; N13.6 Pyonephrosis; K21.9 Gastro-esophageal reflux disease without esophagitis; R57.0 Cardiogenic shock; E87.6 Hypokalemia; I46.9 Cardiac arrest, cause unspecified; K52.9 Noninfective gastroenteritis and colitis, unspecified; D64.9 Anemia, unspecified; E83.51 Hypocalcemia; F17.220 Nicotine dependence, chewing tobacco, uncomplicated; E86.0 Dehydration; E88.09 Other disorders of plasma-protein metabolism, not elsewhere classified; M50.30 Other cervical disc degeneration, unspecified cervical region; E10.65 Type 1 diabetes mellitus with hyperglycemia; B96.1 Klebsiella pneumoniae [K. pneumoniae] as the cause of diseases classified elsewhere; G89.29 Other chronic pain; M54.9 Dorsalgia, unspecified; E83.41 Hypermagnesemia; I47.20 Ventricular tachycardia, unspecified; D69.6 Thrombocytopenia, unspecified; E83.39 Other disorders of phosphorus metabolism; Z88.5 Allergy status to narcotic agent; Z90.49 Acquired absence of other specified parts of digestive tract; Z91.199 Patient's noncompliance with other medical treatment and regimen due to unspecified reason
CPT/HCPCS: 31500; 33210; 36415; 36556; 51702; 70450; 71045; 74177; 74230; 76937; 80047; 80048; 80053; 80061; 80069; 81001; 82947; 83605; 83690; 83735; 83880; 84100; 84145; 84484; 85014; 85018; 85025; 85520; 85610; 85730; 86850; 86900; 86901; 87040; 87070; 87077; 87086; 87186; 87205; 92526; 92610; 92611; 92950; 93005; 93010; 94002; 94003; 94760; 96365-59; 96366-59; 96368; 96375-59; 97112; 97162; 97165; 97530; 99291-25; 99292; A9270; C1751; C1769; C1894; C8929; C9113; J0171; J0461; J0612; J0696; J0744; J1265; J1644; J1815; J1940; J2060; J2250; J2371; J2405; J2543; J2704; J2765; J3010; J3480; J7030; J7050; J7060; J7120; Q9957; Q9967